=== PATIENT | female | born 1960 | race Caucasian/White ===

== ENCOUNTER 2016-09-04 13:09 | Inpatient (IN) | payer OTHER ==
[~2016-09-04] VITALS: Ht 149.9 cm; Wt 72.4 kg
[2016-09-04 15:07] LABS: ADD SCAN DIFF NO
[2016-09-04 15:11] LABS: BASOPHILS % 0.3 % (0.0-2.0); EOSINOPHILS # 0.3 10^3/ul (0.0-0.5); HEMATOCRIT 22.8 % (37.0-47.0); HEMOGLOBIN 7.3 g/dl (12.0-16.0); LYMPHOCYTES # 1.4 10^3/ul (0.8-2.9); LYMPHOCYTES % 13.5 % (15.0-51.0); MEAN CORPUSCULAR HEMOGLOBIN 27.8 pg (29.0-33.0); MEAN CORPUSCULAR VOLUME 86.7 fl (82.0-101.0); MEAN PLATELET VOLUME 9.4 fl (7.4-10.4); MONOCYTE # 0.6 10^3/ul (0.3-0.9); MONOCYTES % 5.6 % (0.0-11.0); NEUTROPHILS % 77.2 % (39.0-77.0); PLATELET COUNT 276 10^3/UL (140-415); RED BLOOD COUNT 2.63 10^6/ul (4.20-5.40); RED CELL DISTRIBUTION WIDTH 14.1 % (11.5-14.5); WHITE BLOOD COUNT 10.4 10^3/ul (4.8-10.8)
[2016-09-04 15:18] LABS: ADD UMIC YES; UR BILIRUBIN (Dip) NEGATIVE (NEGATIVE); UR BLOOD (Dip) TRACE (NEGATIVE); UR CLARITY CLEAR (CLEAR); UR COLOR LT. YELLOW (YELLOW); UR GLUCOSE (Dip) NEGATIVE (NEGATIVE); UR KETONES (Dip) NEGATIVE (NEGATIVE); UR LEUKOCYTE ESTERASE (Dip) NEGATIVE (NEGATIVE); UR NITRITE (Dip) NEGATIVE (NEGATIVE); UR TOTAL PROTEIN (Dip) 2+ (NEGATIVE); UR UROBILINOGEN (Dip) 0.2 E.U./dL (0.1-1.0)
[2016-09-04] MEDS ORDERED: LEVO137T3 PO (15:19)
[2016-09-04] MEDS ORDERED: SIMV20TA PO (15:20)
[2016-09-04] MEDS ORDERED: FER325 PO (15:20)
[2016-09-04] MEDS ORDERED: LISI20TA11 PO (15:20)
[2016-09-04 15:32] LABS: ALANINE AMINOTRANSFERASE 25 IU/L (13-69); ALBUMIN 4.7 g/dl (3.3-4.9); ALBUMIN/GLOBULIN RATIO 1.14; ALKALINE PHOSPHATASE 95 IU/L (42-121); ANION GAP 23 (8-16); ASPARTATE AMINO TRANSFERASE 20 IU/L (15-46); BLOOD UREA NITROGEN 88 mg/dl (7-20); CALCIUM 8.1 mg/dl (8.4-10.2); CARBON DIOXIDE 16 mmol/L (21-31); CHLORIDE 110 mmol/L (97-110); CREATININE 10.24 mg/dl (0.44-1.00); GLUCOSE 94 mg/dl (70-220); POTASSIUM 5.3 mmol/L (3.5-5.1); SODIUM 144 mmol/L (135-144); TOTAL PROTEIN 8.8 g/dl (6.1-8.1)
[2016-09-04 15:45] LABS: URINE RBCS 0-2 /HPF (0)
[2016-09-04 15:54] LABS: TROPONIN-I < 0.012 ng/ml (0.00-0.12)
--- NOTE | 2016-09-04 15:57 | RADRPT ---
PROCEDURE: XR Chest. CLINICAL INDICATION: Abdominal pain. TECHNIQUE: Single AP portable chest COMPARISON: None. FINDINGS: The cardiomediastinal silhouette is within normal limits of size . The lungs are clear without pleur al effusion or focal consolidation. No pneumothorax. The osseous structures and soft tissues are unr emarkable. IMPRESSION: 1. No evidence for active cardiopulmonary disease. RPTAT: HH Osorio Zimmerman Physician Date Time Electronically viewed and signed by Osorio Zimmerman Physician on 09/04/2016 15:57 KARSTEN/
[2016-09-04] MEDS ORDERED: FUROSEMIDE 40 MG INJ IV ONE (16:00)
[2016-09-04] MEDS ORDERED: NA POLYST SULFON 15 GM/60 ML BTL PO ONE (16:00)
[2016-09-04] MEDS ORDERED: ONDANSETRON 4 MG INJ IV PRN (17:00)
[2016-09-04] MEDS ORDERED: morphine 2 MG INJ IV PRN (17:00)
[2016-09-04] MEDS ORDERED: BISACODYL 10 MG SUPP PR PRN (17:00)
[2016-09-04] MEDS ORDERED: DOCUSATE SODIUM 100 MG CAP PO PRN (17:00)
[2016-09-04] MEDS ORDERED: LORAZEPAM 2 MG INJ IV PRN (17:00)
[2016-09-04] MEDS ORDERED: MAGNESIUM HYDROXIDE 30ML CUP PO PRN (17:00)
[2016-09-04] MEDS ORDERED: NACL 0.9% 3 ML SYG IV SCH (17:00)
[2016-09-04 17:35] LABS: HAAIG REFLEX REFLEX FILED
--- NOTE | 2016-09-04 17:36 | ERA ---
ER Documentation Chief Complaint Date/Time DATE: 09/04/16 TIME: 17:27 Chief Complaint sent by dr spaers for creatinine of 9.7. sent for admission and dialysis HPI 55-year-old woman referred by her manufacturing plant manager Dr. Spears for increasing creatinine level and worsening renal function. Patient has a long history of kidney disease and states she has been feeling weaker than usual. She has had increasing lower extremity swelling as well, she states she still makes urine. She denies fevers or chills, no chest pain or palpitations, no shortness of breath, no vomiting or diarrhea. ROS All systems reviewed and are negative except as per history of present illness. Medications Home Meds Reported Medications Lisinopril* (Lisinopril*) 20 Mg Tablet, 20 MG PO DAILY, #30 TAB 09/04/16 Simvastatin* (Zocor*) 20 Mg Tablet, 20 MG PO QHS, #30 TAB 09/04/16 Ferrous Sulfate* (Ferrous Sulfate*) 325 Mg Tabec, 325 MG PO DAILY, TAB 09/04/16 Levothyroxine Sodium* (Levothyroxine Sodium*) 137 Mcg Tablet, 137 MCG PO BEFORE BREAKFAST, #30 TAB 09/04/16 Allergies Allergies: Coded Allergies: Penicillins (Verified Allergy, Severe, 09/04/16) PMhx/Soc Hypertension, anemia, hypothyroidism, obesity, end-stage kidney disease not yet hemodialysis dependent Hx Alcohol Use: No Hx Substance Use: No Hx Tobacco Use: No Smoking Status: Unknown if ever smoked FmHx Family History: diabetes Physical Exam Vitals Vital Signs Date Time Temp Pulse Resp B/P Pulse Ox O2 Delivery O2 Flow Rate FiO2 09/04/16 16:42 82 22 154/81 100 Room Air 09/04/16 13:14 99.1 100 21 111/66 100 Physical Exam GENERAL: Well-developed, well-nourished, well-hydrated, in no apparent distress , looks nontoxic in appearance HEENT: Moist mucous membranes, pink conjunctiva, no cervical spine tenderness or step-off deformities, no goiter, no jaundice or icterus, extraocular movements intact without pain. No submandibular induration, and no pharyngeal erythema NEURO: Alert and oriented 3, cranial nerves II through XII intact bilaterally, pupils equal round reactive to light, no focal deficits or facial asymmetry, sensation intact distally Strength 5/5 in upper and lower extremities bilaterally CARDIAC: Regular rate and rhythm, no murmurs rubs or gallops LUNGS: Clear bilaterally no wheezing crackles or stridor ABDOMEN: Soft nontender, no guarding, no rigidity, no rebound, no psoas sign no obturator sign. Normoactive bowel sounds SKIN: Warm and dry to touch, no abrasions, contusions, or hematomas, no lacerations, no ecchymosis, no target lesions, and without ulcers EXTREMITIES: No clubbing cyanosis, 3+ pitting edema in the lower extremities bilaterally, calves are bilaterally symmetrical, no Homans sign, no popliteal cord sign. Distal pulses equal and bilateral PSYCH: Normal affect without agitation or irritability Result Diagram: 09/04/16 1448 09/04/16 1448 Results 24 hrs Laboratory Tests Test 09/04/16 14:48 White Blood Count 10.410^3/ul Red Blood Count 2.6310^6/ul Hemoglobin 7.3g/dl Hematocrit 22.8% Mean Corpuscular Volume 86.7fl Mean Corpuscular Hemoglobin 27.8pg Mean Corpuscular Hemoglobin Concent 32.0g/dl Red Cell Distribution Width 14.1% Platelet Count 64248^3/UL Mean Platelet Volume 9.4fl Neutrophils % 77.2% Lymphocytes % 13.5% Monocytes % 5.6% Eosinophils % 3.0% Basophils % 0.3% Nucleated Red Blood Cells % 0.0/100WBC Neutrophils # 8.010^3/ul Lymphocytes # 1.410^3/ul Monocytes # 0.610^3/ul Eosinophils # 0.310^3/ul Basophils # 0.010^3/ul Nucleated Red Blood Cells # 0.010^3/ul Urine Color LT. YELLOW Urine Clarity CLEAR Urine pH Urine Specific [place] Urine Ketones NEGATIVE Urine Nitrite NEGATIVE Urine Bilirubin NEGATIVE Urine Urobilinogen 0.2 E.U./dL Urine Leukocyte Esterase NEGATIVE Urine Microscopic RBC 0-2/HPF Urine Microscopic WBC NONE SEEN/HPF Urine Hemoglobin TRACE Urine Glucose NEGATIVE% Urine Total Protein 2+ Sodium Level 144mmol/L Potassium Level 5.3mmol/L Chloride Level 110mmol/L Carbon Dioxide Level 16mmol/L Anion Gap 23 Blood Urea Nitrogen 88mg/dl Creatinine 10.24mg/dl Glucose Level 94mg/dl Calcium Level 8.1mg/dl Total Bilirubin 0.0mg/dl Direct Bilirubin 0.00mg/dl Indirect Bilirubin 0.0mg/dl Aspartate Amino Transf (AST/SGOT) 20IU/L Alanine Aminotransferase (ALT/SGPT) 25IU/L Alkaline Phosphatase 95IU/L Troponin I < 0.012ng/ml Total Protein 8.8g/dl Albumin 4.7g/dl Globulin 4.10g/dl Albumin/Globulin Ratio 1.14 Lipase 618U/L Current Medications Medications (Trade) Dose Ordered Sig/Lou Route PRN Reason Start Time Stop Time Status Last Admin Dose Admin Furosemide (Lasix) 60 mg ONCE ONCE IV 09/04/16 16:00 09/04/16 16:02 DC 09/04/16 16:28 Sodium Polystyrene Sulfonate (Kayexalate) 30 gm ONCE ONCE PO 09/04/16 16:00 09/04/16 16:02 DC 09/04/16 16:34 Ferrous Sulfate (Ferrous Sulfate (Ec)) 325 mg DAILY PO 09/05/16 09:00 Levothyroxine Sodium (Synthroid) 137 mcg BEFORE BREAKFAST PO 09/05/16 07:00 Atorvastatin Calcium (Lipitor) 10 mg QHS PO 09/04/16 21:00 IV Flush (NS 3 ml) 3 ml PER PROTOCOL IV 09/04/16 17:00 Lorazepam (Ativan) 0.5 mg Q6H PRN IV ANXIETY 09/04/16 17:00 Ondansetron HCl (Zofran Inj) 4 mg Q6H PRN IV NAUSEA AND/OR VOMITING 09/04/16 17:00 Acetaminophen (Tylenol Tab) 650 mg Q6H PRN PO PAIN LEVEL 1-3 OR FEVER 09/04/16 17:00 Morphine Sulfate (morphine) 2 mg Q4H PRN IV PAIN LEVEL 7-10 09/04/16 17:00 Docusate Sodium (Colace) 100 mg Q12H PRN PO CONSTIPATION 09/04/16 17:00 Magnesium Hydroxide (Milk Of Mag) 30 ml DAILY PRN PO CONSTIPATION 09/04/16 17:00 Bisacodyl (Dulcolax Supp) 10 mg DAILY PRN [place] CONSTIPATION 09/04/16 17:00 Famotidine (Pepcid) 10 mg HS PO 09/04/16 21:00 Hydralazine HCl (Apresoline) 10 mg Q6H PRN IV ELEVATED BLOOD PRESSURE 09/04/16 17:30 Procedures/MDM IV line was established patient was placed on cardiac technician rhythm strip revealed a sinus rhythm at about 80 bpm with upright P and T waves. Patient was afebrile. One view chest x-ray performed, read by me there is normal mediastinum, no acute infiltrates, no end of the diaphragm. EKG performed, read by me revealed a normal sinus rhythm at 87 bpm, normal axis , narrow QRS complex with peak T waves, no concerning ST elevations or depressions noted. CBC revealed anemia with a hemoglobin of 7.3, electrolytes were abnormal with hyperkalemia 5.3 and renal failure and a creatinine of 10.2. Liver function tests are normal, troponin was negative. Lipase elevated at 618, urine analysis negative for infection. Immediate consultation was obtained with her manufacturing plant manager Dr. Reyes regarding the patient's presentation, symptomatology, and lab values. He recommended treatment with Kayexalate and Lasix 60 mg IV. I administered furosemide 60 mg IV and Kayexalate 30 g p.o. I also ordered transfusion of 2 units PRBCs IV for symptomatic anemia. Patient agreed to transfusion. Patient admitted to Dr. BAILEY to telemetry setting for continued medical management and possible hemodialysis Critical Care: Time: 35 minutes, this was time separate from other billable procedures. Treatments/Evaluations: Close monitoring and treatment of unstable vital signs, cardiorespiratory, and neurologic status, while maintaining tight balance of fluid, respiratory, and cardiac interventions. Departure Diagnosis: Primary Impression: End stage kidney disease Additional Impressions: Symptomatic anemia Hyperkalemia Peripheral edema Condition: LYDIA Carroll MD Sep 04, 2016 17:36
[2016-09-04 17:50] LABS: IRON 48 ug/dl (35-150)
--- NOTE | 2016-09-04 17:58 | HP ---
DATE OF ADMISSION: 09/04/2016 ADMITTING PHYSICIAN: Dr. Rasheed RESTRICTIVE PREPARATION OPERATOR ON THIS ADMISSION: Dr. George from Nephrology. CHIEF COMPLAINT ON ADMISSION: This is a 55-year-old female with a history of hypertension; hyperlip idemia; chronic anemia; chronic kidney disease, advanced stage, who was sent over to the emergency d [facility] after seeing outpatient Nephrology today. The patient was referred to Nephrology by her [facility] physician. She claims that her creatinine has been hanging around 9. Today when she wa s evaluated by Dr. Spears as an outpatient, she was sent to the emergency department for possible initi ation of dialysis. HISTORY OF PRESENT ILLNESS: The patient reports that for the past month she has been having increas ing generalized weakness, decreased exercise tolerance, episodes of nausea, episode of nosebleed and trace blood in her stools. She also reports easy bleeding and difficulty stopping once she starts bleeding. She denies any menorrhagia or metromenorrhagia. She was told she had chronic anemia and has been taking ferrous sulfate over the counter. The patient denies any chest pain. She denies an y neurological deficit, just generalized weakness. In the emergency department, she was found to nugent ve a hemoglobin of 7.3 and also advanced kidney disease, acute kidney injury with mild metabolic aci dosis, hyperkalemia, uremia with a BUN of 88, creatinine up to 10.24. Dr. George, who is covering for Dr. Spears's group at [facility], has been contacted. The patient is being admitted. She is being transfused 1 to 2 units of packed red blood cells. She did receive Lasix 60 mg IV x1 for the hyperkalemia along with Kayexalate. She is being admitted to telemetry floor. The patient td es any fevers, chills, recent sick contacts. She is of sound mind, able to give her history and com fortable at rest. ALLERGIES: PENICILLIN. PAST MEDICAL HISTORY: 1. Chronic anemia, likely of chronic kidney disease. 2. Hypertension. 3. Hyperlipidemia. 4. Chronic kidney disease, advanced stage, probably impending end-stage renal disease. PAST SURGICAL HISTORY: Status post x1 remotely. The patient otherwise has 4 vaginal deli veries. SOCIAL HISTORY: The patient lives with family. She does not drink alcohol, she does not smoke and no history of IV drug use. REVIEW OF SYSTEMS: As per HPI. OUTPATIENT MEDICATIONS: 1. Lisinopril 20 mg p.o. daily. 2. Ferrous sulfate 325 mg p.o. daily. 3. Zocor 20 mg p.o. at bedtime. 4. Levothyroxine 137 mcg daily. PHYSICAL EXAMINATION: VITAL SIGNS: Temperature is 99.1, heart rate of 82, respiratory rate of 22, blood pressure 154/81, patient is saturating 100% on room air. GENERAL: She is alert and oriented x4. She is not in acute distress currently. She feels more com fortable. HEENT: She does have pale sclerae. Otherwise, extraocular muscles are intact, anicteric sclerae. NECK: No JVD, no thyromegaly noted. LUNGS: Clear to auscultation bilaterally. No signs of volume overload even if patient complains of orthopnea at times. ABDOMEN: Soft, nontender, nondistended. Bowel sounds are present. EXTREMITIES: She does have +1 to +2 pedal edema, not much on the upper part of the lower extremity. NEUROLOGIC: Grossly intact with muscle strength of 4+/5 at least throughout. The patient just feel s generalized weakness. LABORATORY DATA: White blood cell count is 10.4, hemoglobin 7.3, hematocrit 22.8, platelet count of 276. Chemistry with a sodium of 144, potassium 5.3, chloride 110, bicarbonate 16, BUN 88, creatini ne 10.24, glucose of 94, calcium of 8.1. Troponin less than 0.012. Total protein 8.8, albumin of 4 .4, total bilirubin 0.1, AST 20, ALT 25, lipase of 618. RADIOLOGICAL DATA: Chest x-ray shows no acute evidence of active cardiopulmonary disease. ELECTROCARDIOGRAM: No acute ST or T-wave abnormalities. ASSESSMENT AND PLAN: This is a 55-year-old female with: 1. Advanced chronic kidney disease, now looks like nearing end-stage renal disease. The patient ma y need to initiate dialysis. Dr. George will be seeing the patient and further decision made at th at time. I am checking renal ultrasound. Discontinue lisinopril for now since the patient was hype rkalemic. We can use hydralazine as needed for hypertension. For now, the patient is not. 2. Hyperkalemia. Dr. George already addressed the issue by giving Lasix and Kayexalate. Will rep eat her labs in the morning. 3. Hypertension. Will change her antihypertensive to Norvasc and/or hydralazine p.r.n. 4. Anemia, likely acute on chronic. The patient will be getting 1 unit of packed red blood cells a t least. I have ordered iron panel, TSH, free T4, B12 and folate. The patient denies any dana ble eding. She just reports episodes where she has been having nosebleed and such, likely related to ur emia and platelet malfunction at that time. Will continue to monitor hemoglobin. Further workup as needed. 5. Hypothyroidism. Will check thyroid function testing and continue levothyroxine. 6. Hyperlipidemia. Check fasting lipid panel in a.m. Continue statin therapy. 7. Prophylaxis: Sequential compression devices to lower extremity for deep venous thrombosis proph ylaxis. Pepcid for gastrointestinal prophylaxis. DISPOSITION: The patient is admitted to telemetry, and Dr. George from Nephrology has been consult ed. Dictated By: LAINE PARK/KENNY Conf#: [id number] DID#: [id number]
[2016-09-04 18:00] LABS: TOTAL IRON BINDING CAPACITY 206 ug/dl (241-421)
[2016-09-04 18:17] LABS: THYROID STIMULATING HORMONE 0.735 MIU/L (0.465-4.680)
[2016-09-04 18:43] LABS: HEPATITIS B CORE ANTIBODY REACTIVE (NEGATIVE)
[2016-09-04 18:52] LABS: FOLATE 11.8 ng/ml (2.8-20.0)
--- NOTE | 2016-09-04 18:57 | RADRPT ---
PROCEDURE: Renal US. CLINICAL INDICATION: Renal failure. TECHNIQUE: Multiple sonographic images of the kidneys were obtained. The images were reviewed on a PACS workstation. COMPARISON: No prior studies are available for comparison. FINDINGS: The right kidney measures 11.2 cm. The left kidney measures 13.5 cm. Increased cortical echogenicity is identified in both kidneys. Thinning of the renal cortices is observed. Bilateral simple appeari ng renal cysts are identified. The largest on the right measures up to 5.5 cm. The largest on the left measures up to 5.8 cm. No solid masses, stones or hydronephrosis are identified. The bladder is filled with a moderate amount of urine and has an unremarkable appearance. IMPRESSION: Echogenic kidneys with thin renal cortices. Finding suggest medical renal disease. Bilateral simple appearing renal cysts. RPTAT: AA .De Cary MD, MD Date Time Electronically viewed and signed by .De Cary MD, MD on 09/04/2016 18:56 .P/
[2016-09-04] MEDS ORDERED: ATORVASTATIN 10 MG TAB PO SCH (21:00)
[2016-09-04] MEDS: hydrALAzine 20 MG INJ IV PRN ×2 (21:11→22:20)
[2016-09-04 22:04] VITALS: PULSE 90
[2016-09-04] MEDS: FAMOTIDINE 20 MG TAB PO SCH (22:19)
[2016-09-04] MEDS ORDERED: BENZOCAINE 20% 0.33 OZ. GEL MM PRN (23:30)
[2016-09-04 23:52] VITALS: BP 178/84; RESP 20
[2016-09-05] VITALS (11 sets, daily range): BP systolic 146–184; BP diastolic 76–87; PULSE 75–97; RESP 18–20; Ht 149.9 cm; Wt 72.4 kg
[2016-09-05] MEDS: ACETAMINOPHEN 325 MG TAB PO PRN (04:10)
[2016-09-05] MEDS: hydrALAzine 20 MG INJ IV PRN (04:33)
[2016-09-05] MEDS: LEVOTHYROXINE 137 MCG TAB PO SCH (06:11)
[2016-09-05 07:54] LABS: ADD SCAN DIFF NO
[2016-09-05 08:04] LABS: BASOPHILS % 0.3 % (0.0-2.0); EOSINOPHILS # 0.3 10^3/ul (0.0-0.5); EOSINOPHILS % 2.3 % (0.0-7.0); HEMATOCRIT 30.2 % (37.0-47.0); HEMOGLOBIN 9.9 g/dl (12.0-16.0); LYMPHOCYTES # 1.2 10^3/ul (0.8-2.9); LYMPHOCYTES % 9.5 % (15.0-51.0); MEAN CORPUSCULAR HEMOGLOBIN 27.8 pg (29.0-33.0); MEAN CORPUSCULAR HGB CONC 32.8 g/dl (32.0-37.0); MEAN CORPUSCULAR VOLUME 84.8 fl (82.0-101.0); MEAN PLATELET VOLUME 10.1 fl (7.4-10.4); MONOCYTE # 0.7 10^3/ul (0.3-0.9); MONOCYTES % 5.3 % (0.0-11.0); NEUTROPHILS % 82.2 % (39.0-77.0); PLATELET COUNT 270 10^3/UL (140-415); RED BLOOD COUNT 3.56 10^6/ul (4.20-5.40); RED CELL DISTRIBUTION WIDTH 14.3 % (11.5-14.5); WHITE BLOOD COUNT 12.2 10^3/ul (4.8-10.8)
[2016-09-05] MEDS: FERROUS SULFATE (EC) 325 MG TAB PO SCH (08:34)
[2016-09-05 08:38] LABS: ALBUMIN 4.6 g/dl (3.3-4.9); ALBUMIN/GLOBULIN RATIO 1.31; BILIRUBIN,INDIRECT 0.5 mg/dl (0-1.1); BILIRUBIN,TOTAL 0.5 mg/dl (0.2-1.3); CALCIUM 7.5 mg/dl (8.4-10.2); CHOL/HDL RATIO 7.5 RATIO; CREATININE 9.78 mg/dl (0.44-1.00); MAGNESIUM 1.8 mg/dl (1.7-2.5); POTASSIUM 4.6 mmol/L (3.5-5.1); TOTAL PROTEIN 8.1 g/dl (6.1-8.1)
[2016-09-05 10:02] LABS: IRON 80 ug/dl (35-150)
[2016-09-05 10:12] LABS: TOTAL IRON BINDING CAPACITY 204 ug/dl (241-421)
[2016-09-05] MEDS: BENAZEPRIL 10 MG TAB PO SCH (10:25)
[2016-09-05] MEDS: ATENOLOL 50 MG TAB GTB SCH ×2 (10:25→20:43)
--- NOTE | 2016-09-05 10:30 | CONS ---
DATE OF ADMISSION: 09/04/2016 DATE OF CONSULTATION: Dear Dr. Rasheed: Thank you for asking me to participate in the care of this 55- year-old para 5, 5 Latin female, who is a somewhat poor historian. Information is limited and is available and also in your excellent history. In summary, the patient has a known history of hypertension for at least 4 years , that she recalls, and has been followed by her primary doctor. She has been maintained on multiple medications including lisinopril, ferrous sulfate, Zocor and levothyroxine. She was recently found to have an elevated creatinine and was seen by in the office and transferred to the hospital for further evaluation and treatment. The workup in the hospital thus far has revealed electrolytes, CO2 is 15, chloride 110, sodium 143. Potassium was elevated, though improved to 4.6 at the time of this dictation. The calcium is low at 7.5, magnesium 1.8. Hemoglobin A1c is 5.6. The BUN and creatinine are 88 and 9.78, respectively. Additional studies include a thyroid hormone of 1.41. TSH is 0.735. The patient has cholesterol studies which suggest hyperlipidemia and white count has risen from 10 to 12.2 and the hematocrit is in the 30% range. The patient has been feeling weak with some nausea. There has been some limited ability to do her daily activities, although has not had any bleeding from any source. The patient has not been exposed to any nephrotoxic agents and has not noticed any decreased urinary volume. PAST MEDICAL HISTORY: Negative for any medical or surgical illness. The patient denies having had any problems with any of her pregnancies. PERSONAL HISTORY: The patient lives with her family and apparently is single. SOCIAL HISTORY: She does not smoke, drink. ALLERGIES: HAS NO KNOWN ALLERGIES. She is not using any other entertainment medications. REVIEW OF SYSTEMS: The rest of the system review is negative for any head, ears , nose, throat problems, chest pain, shortness of breath. No abdominal pain, flank pain, dysuria, frequency, urgency. No history of seizures, syncope, or other metabolic problems. The patient had a urinalysis that showed 2+ protein and the rest is all negative. She does complain of right foot pain, mostly pointing to the anterior aspect of the foot. There is no episode of swelling of any joints and she denies having gout. There is no history of any other acute metabolic problem. The patient denies any problems as a child such as nephritis. FAMILY HISTORY: Noncontributory. PHYSICAL EXAMINATION: GENERAL: Reveals the patient to be a pleasant Latin female, who is in no acute distress. VITAL SIGNS: Blood pressure has been as high as 184/87, presently is improving. Heart rate is 79, temperature is 97, respirations 18 to 20. HEENT: Exam is the head, ears, nose throat are unremarkable. Conjunctivae are pale. Sclerae are anicteric. Nose normal mucosa. Tongue is pale. No pharyngeal congestion. NECK: Supple. No jugular venous distention, lymph node or thyroid enlargement. Trachea is midline. CHEST: Symmetrical. BREASTS: Not examined. LUNGS: Clear. HEART: Regular rhythm. S1, S2 unremarkable. ABDOMEN: Flat, soft. No masses. Kidneys are not palpable. No CVA tenderness elicited. No bruit over the mid abdomen. GENITALIA: Not examined. EXTREMITIES: No cyanosis, clubbing or edema. SKIN: Pale. NEUROLOGIC: No neurological deficits noted. IMPRESSION: 1. History of hypertension, longstanding. 2. Probably ongoing chronic kidney disease, presently stage 5. 3. Anemia. 4. Pain in right foot. Rule out gout. This patient may have end-stage renal status with ongoing insufficiency, most likely related to nephrosclerosis. The creatinine is so high the etiology may be a moot point at this time and obviously is not worth pursuing, although I will take the liberty to request some studies to rule out the possibility of collagen vascular diseases, such as antinuclear antibody titer. I would follow the patient's clinical course along with you and hope that we can proceed with dialysis which is inevitable and for which she is a candidate. The various options Hemo vs Peritoneal is a worthwhile discussion and will be further pursued once the pt is stable. We will need to make arrangements for outpatient dialysis eventually, for which a hepatitis screen has been done and is negative. I will be following the patient's clinical course closely. Allow me to thank you once again. Sincerely, Dictated By: JACOBO CLAYTON/KENNY Conf#: [id number] DID#: [id number] PHUONG
[2016-09-05] MEDS: CALCIUM ACETATE 667 MG CAP NGT SCH ×2 (11:48→17:20)
[2016-09-05 11:50] LABS: PHOSPHORUS 7.7 mg/dl (2.5-4.9)
[2016-09-05 12:21] LABS: COMPLEMENT C3 118 mg/dl (88-165); COMPLEMENT C4 44 mg/dl (14-44)
--- NOTE | 2016-09-05 13:51 | PN ---
Date/Time of Note Date/Time of Note DATE: 09/05/16 TIME: 13:39 Assessment/Plan VTE Prophylaxis VTE Prophylaxis Intervention: SCD's Lines/Catheters [facility] Saline Lock Urinary Cath still in place: No Assessment/Plan Assessment/Plan 55-year-old female with: 1. Advanced chronic kidney disease, now looks like nearing end-stage renal disease. Per Nephrology, PermCAth placement and initiation of HD Dr Spears rounded on patient today s/p pRBC 2. Hyperkalemia. S/p Lasix and Kayexalate yesterday, resolved 3. Hypertension. Continue Atenolol and hydralazine p.r.n. 4. Anemia, likely acute on chronic. Hb up to 9.9 S/p pRBC last night Iron panel, TSH, free T4, B12 and folate done Patient denies any dana bleeding. She just reports episodes where she has been having nosebleed and such, likely related to uremia and platelet malfunction at that time. 5. Hypothyroidism. TFTs stable, continue current dose of levothyroxine. 6. Hyperlipidemia. Continue statin therapy. 7. Gout?, uric acid up to 10.4, will start allopurinol Prophylaxis: Sequential compression devices to lower extremity for deep venous thrombosis prophylaxis. Pepcid for gastrointestinal prophylaxis. DISPOSITION: Telemetry, PermCath placement, initiation of HD per Nephrology. Subjective 24 Hr Interval Summary Free Text/Dictation Patient remains stable, post pRBC overnight Per Tory this AM, will require initiation of HD and PermCath placement pending Exam/Review of Systems Vital Signs Vitals Vital Signs Date Time Temp Pulse Resp B/P Pulse Ox O2 Delivery O2 Flow Rate FiO2 09/05/16 12:30 77 09/05/16 11:12 98.2 19 168/81 98 09/04/16 21:00 Room Air Intake and Output 09/04/16 09/04/16 09/05/16 15:00 23:00 07:00 Intake Total 800 ml Balance 800 ml Exam Constitutional: alert, oriented, well developed Respiratory: clear to auscultation, normal air movement Cardiovascular: nl pulses, regular rate and rhythm Gastrointestinal: non-tender, soft Musculoskeletal: nl extremities to inspection, swelling (left forefoot with TTP metatarsal joints ) Extremities: normal pulses, other (no edema, clubbing or cyanosis ) Neurological: TEST DESK OPERATOR II-XII intact, nl mental status, nl speech, nl strength Results Result Diagram: 09/05/16 0641 09/05/16 0641 Results 24 hrs Laboratory Tests Test 09/04/16 14:48 09/05/16 06:20 09/05/16 06:41 09/05/16 06:42 White Blood Count 10.4 12.2 H Red Blood Count 2.63 L 3.56 #L Hemoglobin 7.3 L 9.9 #L Hematocrit 22.8 L 30.2 #L Mean Corpuscular Volume 86.7 84.8 Mean Corpuscular Hemoglobin 27.8 L 27.8 L Mean Corpuscular Hemoglobin Concent 32.0 32.8 Red Cell Distribution Width 14.1 14.3 Platelet Count 276 270 Mean Platelet Volume 9.4 10.1 Neutrophils % 77.2 H 82.2 H Lymphocytes % 13.5 L 9.5 L Monocytes % 5.6 5.3 Eosinophils % 3.0 2.3 Basophils % 0.3 0.3 Nucleated Red Blood Cells % 0.0 0.0 Neutrophils # 8.0 H 10.0 H Lymphocytes # 1.4 1.2 Monocytes # 0.6 0.7 Eosinophils # 0.3 0.3 Basophils # 0.0 0.0 Nucleated Red Blood Cells # 0.0 0.0 Urine Color LT. YELLOW Urine Clarity CLEAR Urine pH Urine Specific [place] Urine Ketones NEGATIVE Urine Nitrite NEGATIVE Urine Bilirubin NEGATIVE Urine Urobilinogen 0.2 E.U./dL Urine Leukocyte Esterase NEGATIVE Urine Microscopic RBC 0-2 Urine Microscopic WBC NONE SEEN Urine Hemoglobin TRACE Urine Glucose NEGATIVE Urine Total Protein 2+ H Sodium Level 144 143 Potassium Level 5.3 H 4.6 Chloride Level 110 110 Carbon Dioxide Level 16 L 15 L Anion Gap 23 H 23 H Blood Urea Nitrogen 88 H 88 H Creatinine 10.24 H 9.78 H Glucose Level 94 93 Calcium Level 8.1 L 7.5 L Iron Level 48 80 # Total Iron Binding Capacity 206 L 204 L Percent Iron Saturation 23 39 Ferritin 178.0 Total Bilirubin 0.0 L 0.5 Direct Bilirubin 0.00 0.00 Indirect Bilirubin 0.0 0.5 Aspartate Amino Transf (AST/SGOT) 20 19 Alanine Aminotransferase (ALT/SGPT) 25 22 Alkaline Phosphatase 95 97 Troponin I < 0.012 Total Protein 8.8 H 8.1 Albumin 4.7 4.6 Globulin 4.10 H 3.50 H Albumin/Globulin Ratio 1.14 1.31 Lipase 618 H Vitamin B12 Level 478 Folate 11.8 Thyroid Stimulating Hormone (TSH) 0.735 Free Thyroxine 1.41 Hepatitis B Surface Antigen NEGATIVE Hepatitis B Core Total Antibody REACTIVE H Hepatitis C Antibody NEGATIVE Urine Random Creatinine 40.01 Urine Random Sodium 104 H Hemoglobin A1c 5.6 Uric Acid 10.4 H Magnesium Level 1.8 Triglycerides Level 223 H Cholesterol Level 144 LDL Cholesterol, Calculated 80 HDL Cholesterol 19 L Cholesterol/HDL Ratio 7.5 Lab Scanned Report BLOOD TRANSFUSION Test 09/05/16 11:10 Phosphorus Level 7.7 H Parathyroid Hormone (Intact) Complement C3 118 Complement C4 44 Hepatitis B Surface Antigen NEGATIVE Hepatitis B Surface Antibody POSITIVE H Hepatitis C Antibody NEGATIVE Medications Medications Current Medications Ferrous Sulfate (Ferrous Sulfate (Ec)) 325 mg DAILY PO Last administered on 08:34; Admin Dose 325 MG; Start 09/05/16 at 09:00 Lorazepam (Ativan) 0.5 mg Q6H PRN IV ANXIETY; Start 09/04/16 at 17:00 Ondansetron HCl (Zofran Inj) 4 mg Q6H PRN IV NAUSEA AND/OR VOMITING; Start at 17:00 Acetaminophen (Tylenol Tab) 650 mg Q6H PRN PO PAIN LEVEL 1-3 OR FEVER Last administered on 09/05/16 04:10; Admin Dose 650 MG; Start 09/04/16 at 17:00 Morphine Sulfate (morphine) 2 mg Q4H PRN IV PAIN LEVEL 7-10; Start 09/04/16 at 17:00 Docusate Sodium (Colace) 100 mg Q12H PRN PO CONSTIPATION; Start 09/04/16 at 17: 00 Magnesium Hydroxide (Milk Of Mag) 30 ml DAILY PRN PO CONSTIPATION; Start at 17:00 Bisacodyl (Dulcolax Supp) 10 mg DAILY PRN [place] CONSTIPATION; Start 09/04/16 at 17 :00 Famotidine (Pepcid) 10 mg HS PO Last administered on 09/04/16 22:19; Admin Dose 10 MG; Start 09/04/16 at 21:00 Hydralazine HCl (Apresoline) 10 mg Q6H PRN IV ELEVATED BLOOD PRESSURE Last administered on 09/05/16 04:33; Admin Dose 10 MG; Start 09/04/16 at 17:30 Benzocaine (Orajel Maximum) 1 applic Q4H PRN MM mouth/gum pain; Start 09/04/16 at 23:30 Benazepril HCl (Lotensin) 10 mg DAILY PO Last administered on 09/05/16 10:25; Admin Dose 10 MG; Start 09/05/16 at 09:30 Atenolol (Tenormin) 50 mg BID GTB Last administered on 09/05/16 10:25; Admin Dose 50 MG; Start 09/05/16 at 09:30 Atorvastatin Calcium (Lipitor) 20 mg QHS PO ; Start 09/05/16 at 21:00 LAINE BAILEY Sep 05, 2016 13:50
[2016-09-05 14:37] LABS: INR 1.02; PROTIME 13.4 Sec (12.2-14.2)
[2016-09-05 14:38] LABS: PARTIAL THROMBOPLASTIN TIME 26.7 Sec (25.0-35.0)
[2016-09-05] MEDS: ALLOPURINOL 100 MG TAB PO SCH (14:54)
--- NOTE | 2016-09-05 15:52 | RADRPT ---
Echocardiogram Report Patient Name: BLAZE DAHL Gender: Female Date: 1960 Study Date: 05-Sep-2016 Seismic Engineer: Guillermo Kumar RDCS Location: [facility] Ref. Physician: PONCHO BAILEY Quality: Good Procedures: Transthoracic echocardiogram with complete 2D, M-Mode, and doppler examination. Indications: Evaluate Left Ventricular function. 2D/M Mode Doppler Measurement Value Normal Ranges Measurement Value Normal Ranges LVIDd 2D 5.1 3.5 - 5.6 cm AV Peak Norris 1.9 m/sec LVIDs 2D 2.9 2.1 - 4.1 cm AV Peak PG 15.0 mmHg FS 2D 43.2 % LVOT Peak Norris 1.3 m/sec LVPWd 2D 1.1 0.6 - 1.1 cm LVOT Peak PG 7.0 mmHg IVSd 2D 1.1 0.6 - 1.1 cm MV E Peak Norris 0.8 m/sec IVS/LVPW 2D 1.0 MV A Peak Norris 1.0 m/sec AoR Diam 2D 2.7 2.0 - 3.7 cm MV E/A 0.8 LA/Ao 2D 1 0 - 1 MV Decel Time 190 msec EDV 2D 136.0 cm3 MV E/A 0.8 ESV 2D 24.9 cm3 TR Peak Norris 2.9 m/sec LA Dimen 2D 3.4 2.3 - 4.0 cm TR Peak PG 33.0 mmHg RVSP 36.0 mmHg Findings Left Ventricle: Normal left ventricular systolic function. Normal left ventricular cavity size. Mild concentric left ventricular hypertrophy. Ejection fraction is visually estimated at 65 %. Tissue Doppler/Mitral Doppler indices are consistent with impaired relaxation (Stage I diastolic dysfunction). Right Ventricle: Normal right ventricular size. Normal right ventricular systolic function. Left Atrium: The left atrium is normal in size. Right Atrium: The right atrium is normal in size. Mitral Valve: Normal appearance of the mitral valve. Mild mitral annular calcification. Trace mitral regurgitation. Aortic Valve: Aortic sclerosis without stenosis. No aortic regurgitation. Tricuspid Valve: Normal appearance of the tricuspid valve. Estimated peak PA systolic pressure 36 mmHg. There is mild tricuspid regurgitation. Pulmonic Valve: Normal pulmonic valve appearance. Pericardium: Normal pericardium with no significant pericardial effusion. Aorta: Normal aortic root. IVC: Normal size and normal respiratory collapse consistent with normal right atrial pressure. Conclusions 1.Normal left ventricular systolic function. Normal left ventricular cavity size. Mild concentric left ventricular hypertrophy. Ejection fraction is visually estimated at 65 %. Tissue Doppler/Mitral Doppler indices are consistent with impaired relaxation (Stage I diastolic dysfunction). 2.Normal appearance of the mitral valve. Mild mitral annular calcification. Trace mitral regurgitation. 3.Aortic sclerosis without stenosis. No aortic regurgitation. 4.Normal appearance of the tricuspid valve. Estimated peak PA systolic pressure 36 mmHg. There is mild tricuspid regurgitation. 5.Normal pulmonic valve appearance. 6.Normal pericardium with no significant pericardial effusion. Electronically Signed By: Abraham Williamson 05-Sep-2016 15:52:32 -0700 Patient Name: BLAZE DAHL Study Date: 05-Sep-2016 [id number]
[2016-09-05] MEDS ORDERED: LORAZEPAM 0.5 MG TAB PO PRN (18:00)
[2016-09-05] MEDS: FAMOTIDINE 20 MG TAB PO SCH (20:43)
[2016-09-05] MEDS: ATORVASTATIN 20 MG TAB PO SCH (20:43)
[2016-09-06] VITALS (19 sets, daily range): BP systolic 126–181; BP diastolic 70–86; PULSE 58–72; RESP 18
[2016-09-06 06:03] LABS: ADD SCAN DIFF NO
[2016-09-06 06:10] LABS: BASOPHILS % 0.3 % (0.0-2.0); EOSINOPHILS # 0.3 10^3/ul (0.0-0.5); EOSINOPHILS % 3.3 % (0.0-7.0); HEMATOCRIT 29.5 % (37.0-47.0); HEMOGLOBIN 9.6 g/dl (12.0-16.0); LYMPHOCYTES # 1.5 10^3/ul (0.8-2.9); LYMPHOCYTES % 15.5 % (15.0-51.0); MEAN CORPUSCULAR HEMOGLOBIN 27.8 pg (29.0-33.0); MEAN CORPUSCULAR HGB CONC 32.5 g/dl (32.0-37.0); MEAN CORPUSCULAR VOLUME 85.5 fl (82.0-101.0); MONOCYTE # 0.6 10^3/ul (0.3-0.9); MONOCYTES % 6.1 % (0.0-11.0); NEUTROPHIL # 7.3 10^3/ul (1.6-7.5); NEUTROPHILS % 74.4 % (39.0-77.0); PLATELET COUNT 270 10^3/UL (140-415); RED BLOOD COUNT 3.45 10^6/ul (4.20-5.40); RED CELL DISTRIBUTION WIDTH 14.3 % (11.5-14.5); WHITE BLOOD COUNT 9.8 10^3/ul (4.8-10.8)
[2016-09-06 06:32] LABS: INR 1.09; PARTIAL THROMBOPLASTIN TIME 28.4 Sec (25.0-35.0); PROTIME 14.1 Sec (12.2-14.2); PT RATIO 1.1
[2016-09-06] MEDS: LEVOTHYROXINE 137 MCG TAB PO SCH (06:35)
[2016-09-06 06:57] LABS: MAGNESIUM 1.9 mg/dl (1.7-2.5); PHOSPHORUS 8.7 mg/dl (2.5-4.9)
[2016-09-06 07:04] LABS: CALCIUM 7.9 mg/dl (8.4-10.2); CREATININE 9.85 mg/dl (0.44-1.00); POTASSIUM 4.7 mmol/L (3.5-5.1)
[2016-09-06] MEDS ORDERED: IODIXANOL LOCM 100 ML BTL ONE (08:27)
[2016-09-06] MEDS ORDERED: FENTAnyl 50 MCG/ML VIAL ONE (08:27)
[2016-09-06] MEDS ORDERED: LIDOCAINE 1% (MDV) 20 ML INJ ONE (08:27)
[2016-09-06] MEDS ORDERED: IODIXANOL LOCM 50 ML BTL ONE (08:27)
[2016-09-06] MEDS ORDERED: MIDAZOLAM 1 MG/ML 2 ML INJ ONE (08:28)
[2016-09-06] MEDS ORDERED: HEPARIN 1000 UNITS/ML 10 ML INJ ONE (08:51)
[2016-09-06] MEDS ORDERED: HEPARIN 1000 UNITS/NS (A-LINE) 1,000 ML ONE (08:52)
[2016-09-06] MEDS: ALLOPURINOL 100 MG TAB PO SCH (10:00)
[2016-09-06] MEDS: CALCIUM ACETATE 667 MG CAP NGT SCH ×3 (10:03→18:17)
[2016-09-06] MEDS: FERROUS SULFATE (EC) 325 MG TAB PO SCH (10:04)
[2016-09-06] MEDS: BENAZEPRIL 10 MG TAB PO SCH (10:06)
[2016-09-06] MEDS: ATENOLOL 50 MG TAB GTB SCH ×2 (10:06→20:23)
--- NOTE | 2016-09-06 11:30 | PN ---
Date/Time of Note Date/Time of Note DATE: 09/06/16 TIME: 11:21 Assessment/Plan VTE Prophylaxis VTE Prophylaxis Intervention: SCD's Lines/Catheters IV [facility]from [facility] Saline Lock Urinary Cath still in place: No Assessment/Plan Assessment/Plan 55-year-old female with: 1. Advanced chronic kidney disease, now looks like nearing end-stage renal disease. S/p Perm Cath placement today and plan for HD today per Nephrology and needs outpatient HD set up Hep panel with Hep B positive otherwise negative and CXR clear 2. Hyperkalemia. S/p Lasix and Kayexalate yesterday, resolved 3. Hypertension. Continue Atenolol and hydralazine p.r.n. 4. Anemia, likely acute on chronic 2ry to ESRD. Hb up to 9.9 and stable S/p pRBC on admission. Iron panel, TSH, free T4, B12 and folate done Patient denies any dana bleeding. She just reports episodes where she has been having nosebleed and such, likely related to uremia and platelet malfunction at that time. 5. Hypothyroidism. TFTs stable, continue current dose of levothyroxine. 6. Hyperlipidemia. Continue statin therapy. 7. Gout?, uric acid up to 10.4, now on Allopurinol and no left foot pain today. Prophylaxis: Sequential compression devices to lower extremity for deep venous thrombosis prophylaxis. Pepcid for gastrointestinal prophylaxis. DISPOSITION: Telemetry, s/p PermCath placement this AM, initiation of HD per Nephrology. Subjective 24 Hr Interval Summary Free Text/Dictation Patient doing well today and no further complaints of left foot pain or swelling PermCath placed this am and to start HD today. Exam/Review of Systems Vital Signs Vitals Vital Signs Date Time Temp Pulse Resp B/P Pulse Ox O2 Delivery O2 Flow Rate FiO2 09/06/16 08:13 58 09/06/16 07:10 98.5 18 153/80 97 09/04/16 21:00 Room Air Intake and Output 09/05/16 09/05/16 09/06/16 15:00 23:00 07:00 Intake Total 500 ml 600 ml Balance 500 ml 600 ml Exam Constitutional: alert, oriented, well developed Respiratory: clear to auscultation, normal air movement, other (Right subclavian permcath placed) Cardiovascular: nl pulses, regular rate and rhythm Gastrointestinal: non-tender, soft Musculoskeletal: nl extremities to inspection Extremities: normal pulses, other (no edema, clubbing or cyanosis ) Neurological: CREDIT COLLECTIONS ANALYST II-XII intact, nl mental status, nl speech, nl strength Results Result Diagram: 09/06/16 0525 09/06/16 0520 Results 24 hrs Laboratory Tests Test 09/05/16 14:00 09/06/16 05:20 09/06/16 05:25 09/06/16 05:26 Prothrombin Time 13.4 14.1 Prothrombin Time Ratio 1.0 1.1 INR International Normalized Ratio 1.02 1.09 Activated Partial Thromboplast Time 26.7 28.4 Sodium Level 141 Potassium Level 4.7 Chloride Level 108 Carbon Dioxide Level 16 L Anion Gap 22 H Blood Urea Nitrogen 99 H Creatinine 9.85 H Glucose Level 89 Calcium Level 7.9 L White Blood Count 9.8 Red Blood Count 3.45 L Hemoglobin 9.6 L Hematocrit 29.5 L Mean Corpuscular Volume 85.5 Mean Corpuscular Hemoglobin 27.8 L Mean Corpuscular Hemoglobin Concent 32.5 Red Cell Distribution Width 14.3 Platelet Count 270 Mean Platelet Volume 10.0 Neutrophils % 74.4 Lymphocytes % 15.5 Monocytes % 6.1 Eosinophils % 3.3 Basophils % 0.3 Nucleated Red Blood Cells % 0.0 Neutrophils # 7.3 Lymphocytes # 1.5 Monocytes # 0.6 Eosinophils # 0.3 Basophils # 0.0 Nucleated Red Blood Cells # 0.0 Phosphorus Level 8.7 H Magnesium Level 1.9 Medications Medications Current Medications Ferrous Sulfate (Ferrous Sulfate (Ec)) 325 mg DAILY PO Last administered on 10:04; Admin Dose 325 MG; Start 09/05/16 at 09:00 Ondansetron HCl (Zofran Inj) 4 mg Q6H PRN IV NAUSEA AND/OR VOMITING; Start at 17:00 Acetaminophen (Tylenol Tab) 650 mg Q6H PRN PO PAIN LEVEL 1-3 OR FEVER Last administered on 09/05/16 04:10; Admin Dose 650 MG; Start 09/04/16 at 17:00 Morphine Sulfate (morphine) 2 mg Q4H PRN IV PAIN LEVEL 7-10; Start 09/04/16 at 17:00 Docusate Sodium (Colace) 100 mg Q12H PRN PO CONSTIPATION; Start 09/04/16 at 17: 00 Magnesium Hydroxide (Milk Of Mag) 30 ml DAILY PRN PO CONSTIPATION; Start at 17:00 Bisacodyl (Dulcolax Supp) 10 mg DAILY PRN [place] CONSTIPATION; Start 09/04/16 at 17 :00 Famotidine (Pepcid) 10 mg HS PO Last administered on 09/05/16 20:43; Admin Dose 10 MG; Start 09/04/16 at 21:00 Hydralazine HCl (Apresoline) 10 mg Q6H PRN IV ELEVATED BLOOD PRESSURE Last administered on 09/05/16 04:33; Admin Dose 10 MG; Start 09/04/16 at 17:30 Benzocaine (Orajel Maximum) 1 applic Q4H PRN MM mouth/gum pain; Start 09/04/16 at 23:30 Benazepril HCl (Lotensin) 10 mg DAILY PO Last administered on 09/06/16 10:06; Admin Dose 10 MG; Start 09/05/16 at 09:30 Atenolol (Tenormin) 50 mg BID GTB Last administered on 09/06/16 10:06; Admin Dose 50 MG; Start 09/05/16 at 09:30 Atorvastatin Calcium (Lipitor) 20 mg QHS PO Last administered on 09/05/16 20: 43; Admin Dose 20 MG; Start 09/05/16 at 21:00 Allopurinol (Zyloprim) 100 mg DAILY PO Last administered on 09/06/16 10:00; Admin Dose 100 MG; Start 09/05/16 at 14:00 Lorazepam (Ativan) 0.5 mg Q6H PRN PO ANXIETY; Start 09/05/16 at 18:00 Procedures Procedures PROCEDURE: XR Chest. CLINICAL INDICATION: Abdominal pain. TECHNIQUE: Single AP portable chest COMPARISON: None. FINDINGS: The cardiomediastinal silhouette is within normal limits of size . The lungs are clear without pleural effusion or focal consolidation. No pneumothorax. The osseous structures and soft tissues are unremarkable. IMPRESSION: 1. No evidence for active cardiopulmonary disease. RPTAT: Osorio Zimmerman Physician Date Time Electronically viewed and signed by Osorio Zimmerman Physician on 09/04/2016 15:57 LAINE BAILEY Sep 06, 2016 11:30
[2016-09-06] MEDS ORDERED: HEPARIN 1000 UNITS/ML 10 ML INJ CATHETER ONE (14:30)
--- NOTE | 2016-09-06 15:04 | RADRPT ---
PROCEDURE: PLACEMENT OF RIGHT INTERNAL JUGULAR VENOUS TUNNELED DIALYSIS CATHETER. CLINICAL INDICATION: Renal failure. TECHNIQUE: Prior to the procedure, informed consent was obtained. Risks including bleeding, infection, and pneu mothorax were explained to the patient and/or the patient's family. The patient and/or the patient's family understood and was willing to proceed. A procedural pause was performed. The patient's name, date of , and procedure to be performed were verified. The central line was inserted with all elements of maximal sterile barrier technique. All of the following were used: head covering, facial mask, sterile gown, sterile gloves, a large sterile sheet, hand hygiene, and 2% chlorhexidine for cutaneous antisepsis. The right neck and anterior/superior chest wall was prepped and draped in usu al sterile fashion. Limited sonography of the right neck was then performed. Noted is a patent right internal jugular ve in. Ultrasound images were recorded and stored in the patient's medical record. Following the local injection of Xylocaine, the right internal jugular vein was punctured under sono graphic guidance with a 20-gauge needle through which a 0.018 inch floppy tip guidewire was advanced into the superior vena cava. The tract was dilated to 5 Macedonian and the wire was then replaced with a 0.035 in Amplatz guidewire. A tunnel was then created from the anterior lateral aspect of the sup erior right chest wall to the puncture site in the neck and the catheter was pulled through the trac t. Serial dilatation was then performed and a 16 Macedonian peel away sheath was introduced. The 14.5 Macedonian 23cm tip to cuff Angiodynamics BioFlo DuraMax dialysis catheter was advanced through the 16 F rench peel-away sheath. The tip of the catheter was confirmed in position within the right atrium. T he peel-away sheath was removed. The 2 ports were each flushed with 2.3 ml of 1:1000 heparin. The c atheter was secured to the skin with 2-0 silk. The wound in the neck was closed with 4-0 Vicryl suture using subcuticular running technique. The site was dressed. The patient tolerated the proce dure well. COMPARISON: None. FINDINGS: Final radiographic images demonstrate the tip of the catheter in the upper right atrium. A total of 0.2 minutes of fluoroscopy time was used. The ultrasound images demonstrate the needle entering th e jugular vein. Ultrasound images were recorded and stored in the patient's medical record. 5 image s of the chest were obtained with image intensifier. IMPRESSION: 1. Percutaneous insertion of right internal jugular dialysis tunneled dialysis catheter under fluoro scopic and sonographic guidance. RPTAT: QQ .Jay Guevara MD, MD Date Time Electronically viewed and signed by .Jay Guevara MD, MD on 09/06/2016 15:04 .R/
--- NOTE | 2016-09-06 16:01 | CONS ---
Date/Time of Note Date/Time of Note DATE: 09/06/16 TIME: 15:59 Assessment/Plan Assessment/Plan Additional Assessment/Plan 55 yo Female with 1)Stage V CKD, Severe, S/p PC now HD #1 2) HTN Chronic 3) Anemia, Severe S/p PRBC improved 4) MBD, CKD. 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 [id number] Consultation Date/Type/Reason Admit Date/Time Sep 04, 2016 at 16:40 Initial Consult Date Type of Consultation: Renal Reason for Consultation ESRD 24 HR Interval Summary Free Text/Dictation Seen and examined on HD, No new complaint, S/p PC HD #1 Constitutional: No requiring O2 Exam/Review of Systems Vital Signs Vitals Vital Signs Date Time Temp Pulse Resp B/P Pulse Ox O2 Delivery O2 Flow Rate FiO2 09/06/16 15:10 98.1 58 18 128/78 98 09/04/16 21:00 Room Air Intake and Output 09/05/16 09/05/16 09/06/16 15:00 23:00 07:00 Intake Total 500 ml 600 ml Balance 500 ml 600 ml Exam Constitutional: alert, oriented, No distress ENMT: mucosa pink and moist Neck: No jvd Respiratory: No crackles/rales Cardiovascular: edema, regular rate and rhythm Gastrointestinal: non-tender, soft, No rebound or guarding Extremities: edema Neurological: LAUNDRY PRESS OPERATOR II-XII intact, nl mental status, No lethargic Skin: nl turgor, No diaphoresis Results Result Diagram: 09/06/16 0525 09/06/16 0520 Results 24 hrs Laboratory Tests Test 09/06/16 05:20 09/06/16 05:25 09/06/16 05:26 Sodium Level 141 Potassium Level 4.7 Chloride Level 108 Carbon Dioxide Level 16 L Anion Gap 22 H Blood Urea Nitrogen 99 H Creatinine 9.85 H Glucose Level 89 Calcium Level 7.9 L White Blood Count 9.8 Red Blood Count 3.45 L Hemoglobin 9.6 L Hematocrit 29.5 L Mean Corpuscular Volume 85.5 Mean Corpuscular Hemoglobin 27.8 L Mean Corpuscular Hemoglobin Concent 32.5 Red Cell Distribution Width 14.3 Platelet Count 270 Mean Platelet Volume 10.0 Neutrophils % 74.4 Lymphocytes % 15.5 Monocytes % 6.1 Eosinophils % 3.3 Basophils % 0.3 Nucleated Red Blood Cells % 0.0 Neutrophils # 7.3 Lymphocytes # 1.5 Monocytes # 0.6 Eosinophils # 0.3 Basophils # 0.0 Nucleated Red Blood Cells # 0.0 Prothrombin Time 14.1 Prothrombin Time Ratio 1.1 INR International Normalized Ratio 1.09 Activated Partial Thromboplast Time 28.4 Phosphorus Level 8.7 H Magnesium Level 1.9 Medications Medications Current Medications Ferrous Sulfate (Ferrous Sulfate (Ec)) 325 mg DAILY PO Last administered on 10:04; Admin Dose 325 MG; Start 09/05/16 at 09:00 Ondansetron HCl (Zofran Inj) 4 mg Q6H PRN IV NAUSEA AND/OR VOMITING; Start at 17:00 Acetaminophen (Tylenol Tab) 650 mg Q6H PRN PO PAIN LEVEL 1-3 OR FEVER Last administered on 09/05/16 04:10; Admin Dose 650 MG; Start 09/04/16 at 17:00 Morphine Sulfate (morphine) 2 mg Q4H PRN IV PAIN LEVEL 7-10; Start 09/04/16 at 17:00 Docusate Sodium (Colace) 100 mg Q12H PRN PO CONSTIPATION; Start 09/04/16 at 17: 00 Magnesium Hydroxide (Milk Of Mag) 30 ml DAILY PRN PO CONSTIPATION; Start at 17:00 Bisacodyl (Dulcolax Supp) 10 mg DAILY PRN [place] CONSTIPATION; Start 09/04/16 at 17 :00 Famotidine (Pepcid) 10 mg HS PO Last administered on 09/05/16 20:43; Admin Dose 10 MG; Start 09/04/16 at 21:00 Hydralazine HCl (Apresoline) 10 mg Q6H PRN IV ELEVATED BLOOD PRESSURE Last administered on 09/05/16 04:33; Admin Dose 10 MG; Start 09/04/16 at 17:30 Benzocaine (Orajel Maximum) 1 applic Q4H PRN MM mouth/gum pain; Start 09/04/16 at 23:30 Benazepril HCl (Lotensin) 10 mg DAILY PO Last administered on 09/06/16 10:06; Admin Dose 10 MG; Start 09/05/16 at 09:30 Atenolol (Tenormin) 50 mg BID GTB Last administered on 09/06/16 10:06; Admin Dose 50 MG; Start 09/05/16 at 09:30 Atorvastatin Calcium (Lipitor) 20 mg QHS PO Last administered on 09/05/16 20: 43; Admin Dose 20 MG; Start 09/05/16 at 21:00 Allopurinol (Zyloprim) 100 mg DAILY PO Last administered on 09/06/16 10:00; Admin Dose 100 MG; Start 09/05/16 at 14:00 Lorazepam (Ativan) 0.5 mg Q6H PRN PO ANXIETY; Start 09/05/16 at 18:00 CELSO GILLIAM MD Sep 06, 2016 16:01
[2016-09-06 18:01] LABS: ANA SCREEN POSITIVE (NEGATIVE)
[2016-09-06] MEDS: FAMOTIDINE 20 MG TAB PO SCH (20:23)
[2016-09-06] MEDS: ATORVASTATIN 20 MG TAB PO SCH (20:23)
[2016-09-06] MEDS: ACETAMINOPHEN 325 MG TAB PO PRN (20:26)
[2016-09-07] VITALS (19 sets, daily range): BP systolic 99–142; BP diastolic 56–76; PULSE 55–84; RESP 16–18
[2016-09-07] MEDS: LEVOTHYROXINE 137 MCG TAB PO SCH (06:04)
[2016-09-07 07:14] LABS: ADD SCAN DIFF NO
[2016-09-07 07:23] LABS: BASOPHILS % 0.3 % (0.0-2.0); EOSINOPHILS # 0.3 10^3/ul (0.0-0.5); EOSINOPHILS % 3.5 % (0.0-7.0); HEMATOCRIT 32.8 % (37.0-47.0); HEMOGLOBIN 10.5 g/dl (12.0-16.0); LYMPHOCYTES # 1.2 10^3/ul (0.8-2.9); LYMPHOCYTES % 12.8 % (15.0-51.0); MEAN CORPUSCULAR HEMOGLOBIN 27.4 pg (29.0-33.0); MEAN CORPUSCULAR VOLUME 85.6 fl (82.0-101.0); MONOCYTE # 0.6 10^3/ul (0.3-0.9); MONOCYTES % 6.1 % (0.0-11.0); NEUTROPHIL # 7.2 10^3/ul (1.6-7.5); NEUTROPHILS % 76.7 % (39.0-77.0); PLATELET COUNT 297 10^3/UL (140-415); RED BLOOD COUNT 3.83 10^6/ul (4.20-5.40); RED CELL DISTRIBUTION WIDTH 13.8 % (11.5-14.5); WHITE BLOOD COUNT 9.4 10^3/ul (4.8-10.8)
[2016-09-07 07:42] LABS: CALCIUM 8.3 mg/dl (8.4-10.2); CREATININE 8.09 mg/dl (0.44-1.00); POTASSIUM 4.5 mmol/L (3.5-5.1)
[2016-09-07 07:57] LABS: MAGNESIUM 1.8 mg/dl (1.7-2.5)
[2016-09-07] MEDS: CALCIUM ACETATE 667 MG CAP NGT SCH ×3 (09:44→18:32)
[2016-09-07] MEDS: BENAZEPRIL 10 MG TAB PO SCH (09:45)
[2016-09-07] MEDS: ATENOLOL 50 MG TAB GTB SCH ×2 (09:45→21:00)
[2016-09-07] MEDS: ALLOPURINOL 100 MG TAB PO SCH (09:45)
[2016-09-07] MEDS: FERROUS SULFATE (EC) 325 MG TAB PO SCH (09:46)
--- NOTE | 2016-09-07 15:06 | PN ---
Date/Time of Note Date/Time of Note DATE: 09/07/16 TIME: 15:00 Assessment/Plan VTE Prophylaxis VTE Prophylaxis Intervention: ambulation Lines/Catheters IV [facility] Type [facility]from [facility] [place] cath Urinary Cath still in place: No Assessment/Plan Assessment/Plan 55-year-old female with: 1. Advanced chronic kidney disease, now looks like nearing end-stage renal disease. S/p Perm Cath placement om 09/06 and plan for HD today per Nephrology and needs outpatient HD set up; will likely need HD for the next 1-2 days and will be d/c'd with outpatient follow-up/HD. Today she had 1.3 L removed on HD. Hep panel with Hep B positive otherwise negative and CXR clear. 2. Hyperkalemia. S/p Lasix and Kayexalate yesterday, resolved 3. Hypertension. Continue Atenolol and hydralazine p.r.n. 4. Anemia, likely acute on chronic 2ry to ESRD. S/p pRBC on admission. Iron panel, TSH, free T4, B12 and folate done Patient denies any dana bleeding. She just reports episodes where she has been having nosebleed and such, likely related to uremia and platelet malfunction at that time. 5. Hypothyroidism. TFTs stable, continue current dose of levothyroxine. 6. Hyperlipidemia. Continue statin therapy. 7. Gout?, uric acid up to 10.4, now on Allopurinol and no left foot pain today. Prophylaxis: Sequential compression devices to lower extremity for deep venous thrombosis prophylaxis. Pepcid for gastrointestinal prophylaxis. DISPOSITION: Telemetry, s/p PermCath placement on 09/06, initiation of HD per Nephrology. Subjective 24 Hr Interval Summary Free Text/Dictation Resting comfortably; no complaints. Constitutional: no complaints Exam/Review of Systems Vital Signs Vitals Vital Signs Date Time Temp Pulse Resp B/P Pulse Ox O2 Delivery O2 Flow Rate FiO2 09/07/16 12:02 60 09/07/16 11:16 98.9 18 116/76 98 09/07/16 03:59 Room Air Intake and Output 09/06/16 09/06/16 09/07/16 15:00 23:00 07:00 Intake Total 500 ml 750 ml 600 ml Output Total 1500 ml Balance -1000 ml 750 ml 600 ml Exam Constitutional: alert, oriented Psych: no complaints Head: normocephalic Eyes: nl conjunctiva ENMT: nl external ears & nose Neck: supple Respiratory: clear to auscultation Cardiovascular: regular rate and rhythm Gastrointestinal: soft Extremities: edema Results Result Diagram: 09/07/1621 09/07/16 0621 Results 24 hrs Laboratory Tests Test 09/07/16 06:21 White Blood Count 9.4 Red Blood Count 3.83 L Hemoglobin 10.5 L Hematocrit 32.8 L Mean Corpuscular Volume 85.6 Mean Corpuscular Hemoglobin 27.4 L Mean Corpuscular Hemoglobin Concent 32.0 Red Cell Distribution Width 13.8 Platelet Count 297 Mean Platelet Volume 10.0 Neutrophils % 76.7 Lymphocytes % 12.8 L Monocytes % 6.1 Eosinophils % 3.5 Basophils % 0.3 Nucleated Red Blood Cells % 0.0 Neutrophils # 7.2 Lymphocytes # 1.2 Monocytes # 0.6 Eosinophils # 0.3 Basophils # 0.0 Nucleated Red Blood Cells # 0.0 Sodium Level 141 Potassium Level 4.5 Chloride Level 100 Carbon Dioxide Level 22 Anion Gap 24 H Blood Urea Nitrogen 85 H Creatinine 8.09 H Glucose Level 94 Calcium Level 8.3 L Phosphorus Level 8.0 H Magnesium Level 1.8 Medications Medications Current Medications Ferrous Sulfate (Ferrous Sulfate (Ec)) 325 mg DAILY PO Last administered on 09:46; Admin Dose 325 MG; Start 09/05/16 at 09:00 Ondansetron HCl (Zofran Inj) 4 mg Q6H PRN IV NAUSEA AND/OR VOMITING Last administered on 09/07/16 12:39; Admin Dose 4 MG; Start 09/04/16 at 17:00 Acetaminophen (Tylenol Tab) 650 mg Q6H PRN PO PAIN LEVEL 1-3 OR FEVER Last administered on 09/06/16 20:26; Admin Dose 650 MG; Start 09/04/16 at 17:00 Morphine Sulfate (morphine) 2 mg Q4H PRN IV PAIN LEVEL 7-10; Start 09/04/16 at 17:00 Docusate Sodium (Colace) 100 mg Q12H PRN PO CONSTIPATION; Start 09/04/16 at 17: 00 Magnesium Hydroxide (Milk Of Mag) 30 ml DAILY PRN PO CONSTIPATION; Start at 17:00 Bisacodyl (Dulcolax Supp) 10 mg DAILY PRN [place] CONSTIPATION; Start 09/04/16 at 17 :00 Famotidine (Pepcid) 10 mg HS PO Last administered on 09/06/16 20:23; Admin Dose 10 MG; Start 09/04/16 at 21:00 Hydralazine HCl (Apresoline) 10 mg Q6H PRN IV ELEVATED BLOOD PRESSURE Last administered on 09/05/16 04:33; Admin Dose 10 MG; Start 09/04/16 at 17:30 Benzocaine (Orajel Maximum) 1 applic Q4H PRN MM mouth/gum pain; Start 09/04/16 at 23:30 Benazepril HCl (Lotensin) 10 mg DAILY PO Last administered on 09/07/16 09:45; Admin Dose 10 MG; Start 09/05/16 at 09:30 Atenolol (Tenormin) 50 mg BID GTB Last administered on 09/07/16 09:45; Admin Dose 50 MG; Start 09/05/16 at 09:30 Atorvastatin Calcium (Lipitor) 20 mg QHS PO Last administered on 09/06/16 20: 23; Admin Dose 20 MG; Start 09/05/16 at 21:00 Allopurinol (Zyloprim) 100 mg DAILY PO Last administered on 09/07/16 09:45; Admin Dose 100 MG; Start 09/05/16 at 14:00 Lorazepam (Ativan) 0.5 mg Q6H PRN PO ANXIETY; Start 09/05/16 at 18:00 WILLIE ROGERS MD Sep 07, 2016 15:06
[2016-09-07] MEDS: ATORVASTATIN 20 MG TAB PO SCH (21:07)
[2016-09-07] MEDS: FAMOTIDINE 20 MG TAB PO SCH (21:07)
--- NOTE | 2016-09-07 21:32 | CONS ---
Date/Time of Note Date/Time of Note DATE: 09/07/16 TIME: 21:25 Assessment/Plan Assessment/Plan Chief Complaint/Hosp Course Pt had HD done 2x already, creat still very high, will dialyze again in AM Problems: Additional Assessment/Plan Pt responded to Allopurinol Also increase PO4 binders ideally, it'd be carolyn to have avf placed but it can be done as out pt Cont'd Hospitalization Reason: see orders Consultation Date/Type/Reason Admit Date/Time Sep 04, 2016 at 16:40 Initial Consult Date Type of Consultation: Renal 24 HR Interval Summary Free Text/Dictation Pt is in good spirits, no new complaints Exam/Review of Systems Vital Signs Vitals Vital Signs Date Time Temp Pulse Resp B/P Pulse Ox O2 Delivery O2 Flow Rate FiO2 09/07/16 20:15 62 09/07/16 15:45 97.9 17 99/62 98 09/07/16 03:59 Room Air Intake and Output 09/06/16 09/06/16 09/07/16 15:00 23:00 07:00 Intake Total 500 ml 750 ml 600 ml Output Total 1500 ml Balance -1000 ml 750 ml 600 ml Exam Constitutional: alert, oriented, well developed Psych: nl mood/affect, no complaints Head: atraumatic, normocephalic Eyes: EOMI, PERRL, nl conjunctiva, nl lids, nl sclera ENMT: nl external ears & nose, nl lips & teeth, nl nasal mucosa & septum Neck: non-tender, supple Respiratory: clear to auscultation, normal air movement, other (Rt chest wall permacth in place) Cardiovascular: nl pulses, regular rate and rhythm Gastrointestinal: nl liver, spleen, non-tender, soft Musculoskeletal: nl extremities to inspection, nl gait and stance Extremities: normal pulses Neurological: ANIMAL CARE GIVER II-XII intact, nl mental status, nl speech, nl strength Skin: nl turgor, No rash or lesions Lymph: nl lymph nodes Results Uric Acid is over 10, PO4 is still high Result Diagram: 09/07/1662009/07/16620 Results 24 hrs Laboratory Tests Test 09/07/16 06:21 White Blood Count 9.4 Red Blood Count 3.83 L Hemoglobin 10.5 L Hematocrit 32.8 L Mean Corpuscular Volume 85.6 Mean Corpuscular Hemoglobin 27.4 L Mean Corpuscular Hemoglobin Concent 32.0 Red Cell Distribution Width 13.8 Platelet Count 297 Mean Platelet Volume 10.0 Neutrophils % 76.7 Lymphocytes % 12.8 L Monocytes % 6.1 Eosinophils % 3.5 Basophils % 0.3 Nucleated Red Blood Cells % 0.0 Neutrophils # 7.2 Lymphocytes # 1.2 Monocytes # 0.6 Eosinophils # 0.3 Basophils # 0.0 Nucleated Red Blood Cells # 0.0 Sodium Level 141 Potassium Level 4.5 Chloride Level 100 Carbon Dioxide Level 22 Anion Gap 24 H Blood Urea Nitrogen 85 H Creatinine 8.09 H Glucose Level 94 Calcium Level 8.3 L Phosphorus Level 8.0 H Magnesium Level 1.8 Medications Medications Current Medications Ferrous Sulfate (Ferrous Sulfate (Ec)) 325 mg DAILY PO Last administered on 09:46; Admin Dose 325 MG; Start 09/05/16 at 09:00 Ondansetron HCl (Zofran Inj) 4 mg Q6H PRN IV NAUSEA AND/OR VOMITING Last administered on 09/07/16 12:39; Admin Dose 4 MG; Start 09/04/16 at 17:00 Acetaminophen (Tylenol Tab) 650 mg Q6H PRN PO PAIN LEVEL 1-3 OR FEVER Last administered on 09/06/16 20:26; Admin Dose 650 MG; Start 09/04/16 at 17:00 Morphine Sulfate (morphine) 2 mg Q4H PRN IV PAIN LEVEL 7-10; Start 09/04/16 at 17:00 Docusate Sodium (Colace) 100 mg Q12H PRN PO CONSTIPATION; Start 09/04/16 at 17: 00 Magnesium Hydroxide (Milk Of Mag) 30 ml DAILY PRN PO CONSTIPATION; Start at 17:00 Bisacodyl (Dulcolax Supp) 10 mg DAILY PRN [place] CONSTIPATION; Start 09/04/16 at 17 :00 Famotidine (Pepcid) 10 mg HS PO Last administered on 09/07/16 21:07; Admin Dose 10 MG; Start 09/04/16 at 21:00 Hydralazine HCl (Apresoline) 10 mg Q6H PRN IV ELEVATED BLOOD PRESSURE Last administered on 09/05/16 04:33; Admin Dose 10 MG; Start 09/04/16 at 17:30 Benzocaine (Orajel Maximum) 1 applic Q4H PRN MM mouth/gum pain; Start 09/04/16 at 23:30 Benazepril HCl (Lotensin) 10 mg DAILY PO Last administered on 09/07/16 09:45; Admin Dose 10 MG; Start 09/05/16 at 09:30 Atenolol (Tenormin) 50 mg BID GTB Last administered on 09/07/16 09:45; Admin Dose 50 MG; Start 09/05/16 at 09:30 Atorvastatin Calcium (Lipitor) 20 mg QHS PO Last administered on 09/07/16 21: 07; Admin Dose 20 MG; Start 09/05/16 at 21:00 Allopurinol (Zyloprim) 100 mg DAILY PO Last administered on 09/07/16 09:45; Admin Dose 100 MG; Start 09/05/16 at 14:00 Lorazepam (Ativan) 0.5 mg Q6H PRN PO ANXIETY; Start 09/05/16 at 18:00 JACOBO RUDOLPH MD Sep 07, 2016 21:32
[2016-09-08] VITALS (20 sets, daily range): BP systolic 92–125; BP diastolic 52–70; PULSE 57–69; RESP 17–20
[2016-09-08] MEDS: LEVOTHYROXINE 137 MCG TAB PO SCH (06:36)
[2016-09-08] MEDS ORDERED: CALCIUM ACETATE 667 MG CAP NGT SCH (07:55)
[2016-09-08] MEDS: FERROUS SULFATE (EC) 325 MG TAB PO SCH (08:29)
[2016-09-08] MEDS: CALCIUM ACETATE 667 MG CAP NGT SCH ×3 (08:29→17:42)
[2016-09-08] MEDS: BENAZEPRIL 10 MG TAB PO SCH (08:29)
[2016-09-08] MEDS: ATENOLOL 50 MG TAB GTB SCH ×2 (08:29→20:45)
[2016-09-08] MEDS: ALLOPURINOL 100 MG TAB PO SCH (08:29)
--- NOTE | 2016-09-08 13:58 | PN ---
Date/Time of Note Date/Time of Note DATE: 09/08/16 TIME: 13:54 Assessment/Plan VTE Prophylaxis VTE Prophylaxis Intervention: ambulation, SCD's Lines/Catheters IV Catheter Type (from Nrsg): perma cath Urinary Cath still in place: No Subjective 24 Hr Interval Summary Free Text/Dictation Feeling a little weak after HD, otherwise no complaints. Exam/Review of Systems Vital Signs Vitals Vital Signs Date Time Temp Pulse Resp B/P Pulse Ox O2 Delivery O2 Flow Rate FiO2 09/08/16 12:05 62 09/08/16 11:20 97.5 17 113/62 94 09/07/16 03:59 Room Air Intake and Output 09/07/16 09/07/16 09/08/16 14:59 22:59 06:59 Intake Total 500 ml 950 ml 400 ml Output Total 1800 ml 1300 ml Balance -1300 ml -350 ml 400 ml Exam Constitutional: alert, oriented Head: normocephalic Eyes: EOMI, nl conjunctiva ENMT: nl external ears & nose Neck: supple Respiratory: clear to auscultation Cardiovascular: regular rate and rhythm Gastrointestinal: soft Extremities: edema Results Result Diagram: 09/07/1662009/07/16620 Medications Medications Current Medications Ferrous Sulfate (Ferrous Sulfate (Ec)) 325 mg DAILY PO Last administered on 08:29; Admin Dose 325 MG; Start 09/05/16 at 09:00 Ondansetron HCl (Zofran Inj) 4 mg Q6H PRN IV NAUSEA AND/OR VOMITING Last administered on 09/07/16 12:39; Admin Dose 4 MG; Start 09/04/16 at 17:00 Acetaminophen (Tylenol Tab) 650 mg Q6H PRN PO PAIN LEVEL 1-3 OR FEVER Last administered on 09/06/16 20:26; Admin Dose 650 MG; Start 09/04/16 at 17:00 Morphine Sulfate (morphine) 2 mg Q4H PRN IV PAIN LEVEL 7-10; Start 09/04/16 at 17:00 Docusate Sodium (Colace) 100 mg Q12H PRN PO CONSTIPATION; Start 09/04/16 at 17: 00 Magnesium Hydroxide (Milk Of Mag) 30 ml DAILY PRN PO CONSTIPATION; Start at 17:00 Bisacodyl (Dulcolax Supp) 10 mg DAILY PRN [place] CONSTIPATION; Start 09/04/16 at 17 :00 Famotidine (Pepcid) 10 mg HS PO Last administered on 09/07/16 21:07; Admin Dose 10 MG; Start 09/04/16 at 21:00 Hydralazine HCl (Apresoline) 10 mg Q6H PRN IV ELEVATED BLOOD PRESSURE Last administered on 09/05/16 04:33; Admin Dose 10 MG; Start 09/04/16 at 17:30 Benzocaine (Orajel Maximum) 1 applic Q4H PRN MM mouth/gum pain; Start 09/04/16 at 23:30 Benazepril HCl (Lotensin) 10 mg DAILY PO Last administered on 09/07/16 09:45; Admin Dose 10 MG; Start 09/05/16 at 09:30 Atenolol (Tenormin) 50 mg BID GTB Last administered on 09/07/16 09:45; Admin Dose 50 MG; Start 09/05/16 at 09:30 Atorvastatin Calcium (Lipitor) 20 mg QHS PO Last administered on 09/07/16 21: 07; Admin Dose 20 MG; Start 09/05/16 at 21:00 Allopurinol (Zyloprim) 100 mg DAILY PO Last administered on 09/08/16 08:29; Admin Dose 100 MG; Start 09/05/16 at 14:00 Lorazepam (Ativan) 0.5 mg Q6H PRN PO ANXIETY; Start 09/05/16 at 18:00 Procedures Procedures 55-year-old female with: 1. Advanced chronic kidney disease, now looks like nearing end-stage renal disease. S/p Perm Cath placement on 09/06 and plan for HD today per Nephrology and needs outpatient HD set up at [facility]; will likely be d/ c'd with outpatient follow-up/HD today or tomorrow. Yesterday, she had 1.3 L removed on HD. On HD now. Hep panel with Hep B positive otherwise negative and CXR clear. 2. Hypertension. Continue Atenolol and hydralazine p.r.n. 3. Anemia, likely acute on chronic 2ry to ESRD. S/p pRBC on admission. Iron panel, TSH, free T4, B12 and folate done Patient denies any dana bleeding. She just reports episodes where she has been having nosebleed and such, likely related to uremia and platelet malfunction at that time. 4. Hypothyroidism. TFTs stable, continue current dose of levothyroxine. 5. Hyperlipidemia. Continue statin therapy. 6. Gout?, uric acid up to 10.4, now on Allopurinol and no left foot pain today. Prophylaxis: Sequential compression devices to lower extremity for deep venous thrombosis prophylaxis. Pepcid for gastrointestinal prophylaxis. DISPOSITION: Will d/c home no later than tomorrow (if clinically stable) and follow-up with Dr. Spears for outpatient HD. WILLIE ROGERS MD Sep 08, 2016 13:57
[2016-09-08] MEDS: FAMOTIDINE 20 MG TAB PO SCH (20:44)
[2016-09-08] MEDS: ATORVASTATIN 20 MG TAB PO SCH (20:44)
--- NOTE | 2016-09-08 21:35 | CONS ---
Date/Time of Note Date/Time of Note DATE: 09/08/16 TIME: 21:32 Assessment/Plan Assessment/Plan Chief Complaint/Hosp Course spoke to daughter re pt to consider PD instead of HD as an option She us reading up, hopefully will decide once V Sx arrives to see pt Problems: Additional Assessment/Plan Pt tolerated hd this afyernoon Consultation Date/Type/Reason Admit Date/Time Sep 04, 2016 at 16:40 Type of Consultation: Renal 24 HR Interval Summary Free Text/Dictation Daughter at bedside Exam/Review of Systems Vital Signs Vitals Vital Signs Date Time Temp Pulse Resp B/P Pulse Ox O2 Delivery O2 Flow Rate FiO2 09/08/16 20:03 69 09/08/16 15:30 18 09/08/16 15:28 98.5 92/52 96 09/07/16 03:59 Room Air Intake and Output 09/07/16 09/07/16 09/08/16 15:00 23:00 07:00 Intake Total 500 ml 950 ml 400 ml Output Total 1800 ml 1300 ml Balance -1300 ml -350 ml 400 ml Exam Constitutional: alert, oriented, well developed Psych: nl mood/affect, no complaints Head: atraumatic, normocephalic Eyes: EOMI, PERRL, nl conjunctiva, nl lids, nl sclera ENMT: nl external ears & nose, nl lips & teeth, nl nasal mucosa & septum Neck: non-tender, other (rt chest wall permacath in place), supple Respiratory: clear to auscultation, normal air movement Cardiovascular: nl pulses, regular rate and rhythm Gastrointestinal: nl liver, spleen, non-tender, soft Musculoskeletal: nl extremities to inspection, nl gait and stance Extremities: normal pulses Neurological: LOOM WINDER TENDER II-XII intact, nl mental status, nl speech, nl strength Skin: nl turgor, No rash or lesions Lymph: nl lymph nodes Results Result Diagram: 09/07/1662009/07/16620 Medications Medications Current Medications Ferrous Sulfate (Ferrous Sulfate (Ec)) 325 mg DAILY PO Last administered on 08:29; Admin Dose 325 MG; Start 09/05/16 at 09:00 Ondansetron HCl (Zofran Inj) 4 mg Q6H PRN IV NAUSEA AND/OR VOMITING Last administered on 09/07/16 12:39; Admin Dose 4 MG; Start 09/04/16 at 17:00 Acetaminophen (Tylenol Tab) 650 mg Q6H PRN PO PAIN LEVEL 1-3 OR FEVER Last administered on 09/06/16 20:26; Admin Dose 650 MG; Start 09/04/16 at 17:00 Morphine Sulfate (morphine) 2 mg Q4H PRN IV PAIN LEVEL 7-10; Start 09/04/16 at 17:00 Docusate Sodium (Colace) 100 mg Q12H PRN PO CONSTIPATION; Start 09/04/16 at 17: 00 Magnesium Hydroxide (Milk Of Mag) 30 ml DAILY PRN PO CONSTIPATION; Start at 17:00 Bisacodyl (Dulcolax Supp) 10 mg DAILY PRN [place] CONSTIPATION; Start 09/04/16 at 17 :00 Famotidine (Pepcid) 10 mg HS PO Last administered on 09/08/16 20:44; Admin Dose 10 MG; Start 09/04/16 at 21:00 Hydralazine HCl (Apresoline) 10 mg Q6H PRN IV ELEVATED BLOOD PRESSURE Last administered on 09/05/16 04:33; Admin Dose 10 MG; Start 09/04/16 at 17:30 Benzocaine (Orajel Maximum) 1 applic Q4H PRN MM mouth/gum pain; Start 09/04/16 at 23:30 Benazepril HCl (Lotensin) 10 mg DAILY PO Last administered on 09/07/16 09:45; Admin Dose 10 MG; Start 09/05/16 at 09:30 Atenolol (Tenormin) 50 mg BID GTB Last administered on 09/08/16 20:45; Admin Dose 50 MG; Start 09/05/16 at 09:30 Atorvastatin Calcium (Lipitor) 20 mg QHS PO Last administered on 09/08/16 20: 44; Admin Dose 20 MG; Start 09/05/16 at 21:00 Allopurinol (Zyloprim) 100 mg DAILY PO Last administered on 09/08/16 08:29; Admin Dose 100 MG; Start 09/05/16 at 14:00 Lorazepam (Ativan) 0.5 mg Q6H PRN PO ANXIETY; Start 09/05/16 at 18:00 JACOBO RUDOLPH MD Sep 08, 2016 21:34
[2016-09-09] VITALS (9 sets, daily range): BP systolic 115–148; BP diastolic 63–73; PULSE 60–66; RESP 16–20
[2016-09-09 06:18] LABS: ADD SCAN DIFF NO
[2016-09-09 06:27] LABS: BASOPHILS % 0.4 % (0.0-2.0); EOSINOPHILS # 0.4 10^3/ul (0.0-0.5); HEMATOCRIT 31.3 % (37.0-47.0); HEMOGLOBIN 10.3 g/dl (12.0-16.0); LYMPHOCYTES # 1.2 10^3/ul (0.8-2.9); LYMPHOCYTES % 12.8 % (15.0-51.0); MEAN CORPUSCULAR HEMOGLOBIN 27.9 pg (29.0-33.0); MEAN CORPUSCULAR HGB CONC 32.9 g/dl (32.0-37.0); MEAN CORPUSCULAR VOLUME 84.8 fl (82.0-101.0); MEAN PLATELET VOLUME 9.7 fl (7.4-10.4); MONOCYTE # 0.9 10^3/ul (0.3-0.9); MONOCYTES % 9.2 % (0.0-11.0); NEUTROPHIL # 6.8 10^3/ul (1.6-7.5); NEUTROPHILS % 73.3 % (39.0-77.0); PLATELET COUNT 252 10^3/UL (140-415); RED BLOOD COUNT 3.69 10^6/ul (4.20-5.40); RED CELL DISTRIBUTION WIDTH 13.2 % (11.5-14.5); WHITE BLOOD COUNT 9.2 10^3/ul (4.8-10.8)
[2016-09-09] MEDS: LEVOTHYROXINE 137 MCG TAB PO SCH (06:37)
[2016-09-09 06:54] LABS: ALBUMIN 4.3 g/dl (3.3-4.9); CALCIUM 7.9 mg/dl (8.4-10.2); CREATININE 5.21 mg/dl (0.44-1.00); PHOSPHORUS 5.5 mg/dl (2.5-4.9); POTASSIUM 3.9 mmol/L (3.5-5.1)
[2016-09-09] MEDS: CALCIUM ACETATE 667 MG CAP NGT SCH ×3 (08:15→17:33)
[2016-09-09] MEDS: BENAZEPRIL 10 MG TAB PO SCH (08:15)
[2016-09-09] MEDS: ATENOLOL 50 MG TAB GTB SCH ×2 (08:15→20:58)
[2016-09-09] MEDS: FERROUS SULFATE (EC) 325 MG TAB PO SCH (08:15)
[2016-09-09] MEDS: ALLOPURINOL 100 MG TAB PO SCH (08:16)
--- NOTE | 2016-09-09 09:28 | PN ---
Date/Time of Note Date/Time of Note DATE: 09/09/16 TIME: 09:27 Assessment/Plan VTE Prophylaxis VTE Prophylaxis Intervention: ambulation Lines/Catheters IV [facility] (from [facility] [place] Urinary Cath still in place: No Assessment/Plan Assessment/Plan 1. end stage renal disease, plan to arrange outpatient HD and dc home Subjective 24 Hr Interval Summary Free Text/Dictation no complaints eating ok ambulating in room Exam/Review of Systems Vital Signs Vitals Vital Signs Date Time Temp Pulse Resp B/P Pulse Ox O2 Delivery O2 Flow Rate FiO2 09/09/16 08:01 60 09/09/16 07:15 98.3 16 117/66 98 09/09/16 00:00 Room Air Intake and Output 09/08/16 09/08/16 09/09/16 14:59 22:59 06:59 Intake Total 1300 ml 500 ml Output Total 850 ml 2 ml Balance 450 ml 498 ml Exam Constitutional: alert Psych: no complaints Respiratory: clear to auscultation Cardiovascular: regular rate and rhythm Results Result Diagram: 09/09/16 0545 09/09/16 0545 Results 24 hrs Laboratory Tests Test 09/09/16 05:45 White Blood Count 9.2 Red Blood Count 3.69 L Hemoglobin 10.3 L Hematocrit 31.3 L Mean Corpuscular Volume 84.8 Mean Corpuscular Hemoglobin 27.9 L Mean Corpuscular Hemoglobin Concent 32.9 Red Cell Distribution Width 13.2 Platelet Count 252 Mean Platelet Volume 9.7 Neutrophils % 73.3 Lymphocytes % 12.8 L Monocytes % 9.2 Eosinophils % 4.0 Basophils % 0.4 Nucleated Red Blood Cells % 0.0 Neutrophils # 6.8 Lymphocytes # 1.2 Monocytes # 0.9 Eosinophils # 0.4 Basophils # 0.0 Nucleated Red Blood Cells # 0.0 Sodium Level 133 L Potassium Level 3.9 Chloride Level 92 L Carbon Dioxide Level 28 Anion Gap 17 #H Blood Urea Nitrogen 35 #H Creatinine 5.21 #H Glucose Level 93 Calcium Level 7.9 L Phosphorus Level 5.5 #H Albumin 4.3 Medications Medications Current Medications Ferrous Sulfate (Ferrous Sulfate (Ec)) 325 mg DAILY PO Last administered on t 08:15; Admin Dose 325 MG; Start 09/05/16 at 09:00 Ondansetron HCl (Zofran Inj) 4 mg Q6H PRN IV NAUSEA AND/OR VOMITING Last administered on 09/07/16 12:39; Admin Dose 4 MG; Start 09/04/16 at 17:00 Acetaminophen (Tylenol Tab) 650 mg Q6H PRN PO PAIN LEVEL 1-3 OR FEVER Last administered on 09/06/16 20:26; Admin Dose 650 MG; Start 09/04/16 at 17:00 Morphine Sulfate (morphine) 2 mg Q4H PRN IV PAIN LEVEL 7-10; Start 09/04/16 at 17:00 Docusate Sodium (Colace) 100 mg Q12H PRN PO CONSTIPATION Last administered on 08:15; Admin Dose 100 MG; Start 09/04/16 at 17:00 Magnesium Hydroxide (Milk Of Mag) 30 ml DAILY PRN PO CONSTIPATION; Start at 17:00 Bisacodyl (Dulcolax Supp) 10 mg DAILY PRN [place] CONSTIPATION; Start 09/04/16 at 17 :00 Famotidine (Pepcid) 10 mg HS PO Last administered on 09/08/16 20:44; Admin Dose 10 MG; Start 09/04/16 at 21:00 Hydralazine HCl (Apresoline) 10 mg Q6H PRN IV ELEVATED BLOOD PRESSURE Last administered on 09/05/16 04:33; Admin Dose 10 MG; Start 09/04/16 at 17:30 Benzocaine (Orajel Maximum) 1 applic Q4H PRN MM mouth/gum pain; Start 09/04/16 at 23:30 Benazepril HCl (Lotensin) 10 mg DAILY PO Last administered on 09/09/16 08:15; Admin Dose 10 MG; Start 09/05/16 at 09:30 Atenolol (Tenormin) 50 mg BID GTB Last administered on 09/09/16 08:15; Admin Dose 50 MG; Start 09/05/16 at 09:30 Atorvastatin Calcium (Lipitor) 20 mg QHS PO Last administered on 09/08/16 20: 44; Admin Dose 20 MG; Start 09/05/16 at 21:00 Allopurinol (Zyloprim) 100 mg DAILY PO Last administered on 09/09/16 08:16; Admin Dose 100 MG; Start 6/22/17 at 14:00 Lorazepam (Ativan) 0.5 mg Q6H PRN PO ANXIETY; Start 09/05/16 at 18:00 CONNIE DELGADILLO MD Sep 09, 2016 09:28
[2016-09-09] MEDS ORDERED: CALC667C PO (09:33)
[2016-09-09] MEDS ORDERED: ATOR20TA65 PO (09:33)
[2016-09-09] MEDS ORDERED: FER325 PO (09:33)
[2016-09-09] MEDS ORDERED: ATEN50TA GTB (09:33)
--- NOTE | 2016-09-09 09:35 | PDOCDIS ---
Discharge Instructions CONDITION Patient Condition: Fair HOME CARE INSTRUCTIONS: Diet Instructions: 2gm Na ACTIVITY: Activity Restrictions: Slowly Increase Activity FOLLOW UP/APPOINTMENTS Follow-up Plan 1. follow up with dialysis as scheduled 2. you will need to have a permanent dialysis access placed, we will contact you to help arrange this REFERRALS Other Referrals 1. surgery/vascular surgery CONNIE DELGADILLO MD Sep 09, 2016 09:35
--- NOTE | 2016-09-09 09:47 | HP ---
DATE OF ADMISSION: 09/04/2016 SURGERY CONSULTATION Dear Doctors: Ms. Yen is a 55-year-old female with history of chronic kidney disease stage IV to V impending end-stage renal, who had recently had progression of her renal disease. Patient has received a righ t chest wall permanent catheter for her dialysis sessions and consultation was obtained for evaluati on of a fistula creation and possible peritoneal dialysis catheter. At the moment, the patient td es shortness of breath, chest pain, nausea, vomiting, fever or chills. Patient denies upper extremi ty claudication or rest pain-like symptoms. REVIEW OF SYSTEMS: A 14-point review performed and negative except what is mentioned in the HPI. PAST MEDICAL HISTORY: Entails hypertension, hyperlipidemia, chronic kidney disease stage 4 to 5, an emia of chronic disease. PAST SURGICAL HISTORY: x1. SOCIAL HISTORY: Denies tobacco, alcohol or illicit drug use. PHYSICAL EXAMINATION: GENERAL: Alert and oriented x3. No apparent distress. HEENT: Normocephalic, atraumatic. PERRLA, EOMI. Mucosa moist. NECK: Supple. No carotid bruit. PULMONARY: Clear to auscultation bilaterally. No crackles. CARDIOVASCULAR: S1, S2 present. No murmurs. ABDOMEN: Soft, nontender, nondistended. Bowel sounds positive. EXTREMITIES: Lower extremities, palpable femoral pulse, palpable pedal pulse. Motor, sensory intac t. Cap refill 2 to 3 seconds. ASSESSMENT AND PLAN: Chronic kidney disease stage IV to V, impending end-stage renal: It seems the patient's renal disease has progressed to end-stage renal requiring hemodialysis. At the moment, t he patient has received a right chest wall PermCath in which she gets her dialysis sessions. We wi ll plan to obtain bilateral upper extremity vein mapping and arterial duplex of the upper extremitie s for the patient for fistula creation. Further I spoke with the exception about peritoneal dialysi s catheter. The patient did not seem inclined to want to have that done and felt more of doing a fi stula creation. We will plan with our multidisciplinary team, as the best way to provide her the op tions that the patient would like to choose. Would recommend for the patient to have cardiac evaluation for clearance. We will plan schedule the patient in the next day or 2. Optimize vascular status (BP meds, diet, nutrition, exercise, sugar control, antiplatelets). Discussed findings, plan and management with the patient. She understands and also with a certified cassandra architect. Thank you for allowing us to participate in the care of your patient. Please call with any questions . Dictated By: ADELFO MORROW/KENNY Conf#: [id number] DID#: [id number]
[2016-09-09 16:14] LABS: ANA TITER 1:40 titer
--- NOTE | 2016-09-09 17:14 | RADRPT ---
PROCEDURE: US Bilateral Upper Extremity Veins. CLINICAL INDICATION: Bilateral upper extremity swelling. Venous diameter for dialysis fistula plan stephen. TECHNIQUE: Multiple longitudinal and transverse images of the bilateral upper extremity venous radha e was obtained with roque scale and color Doppler imaging. COMPARISON: None available FINDINGS: The subclavian veins, axillary, brachial, basilic, and cephalic veins are patent bilaterally. There is normal flow with augmentation and compressibility throughout. There is no thrombus or occlusion. Diameters are as follows: Right arm cephalic upper: 0.43 cm. Right arm cephalic mid: 0.45 cm. Right arm cephalic lower: 0.39 cm. Right forearm cephalic upper: 0.42 cm. Right forearm cephalic mid: 0.33 cm. Right forearm cephalic lower: 0.26 cm. Right arm basilic upper: 0.62 cm. Right arm basilic mid: 0.45 cm. Right arm basilic lower: 0.38 cm. Right forearm basilic upper: 0.36 cm. Right forearm basilic mid: 0.26 cm. Right forearm basilic lower: 0.20 cm. Left arm cephalic upper: 0.41 cm. Left arm cephalic mid: 0.40 cm. Left arm cephalic lower: 0.45 cm. Left forearm cephalic upper: 0.33 cm. Left forearm cephalic mid: 0.29 cm. Left forearm cephalic lower: 0.27 cm. Left arm basilic upper: 0.44 cm. Left arm basilic mid: 0.47 cm. Left arm basilic lower: 0.39 cm. Left forearm basilic upper: 0.22 cm. Left forearm basilic mid: 0.16 cm. Left forearm basilic lower: 0.15 cm. IMPRESSION: 1. Normal venous system of the upper extremities. No evidence of thrombus or occlusion. 2. The diameter of the vessels as indicated above. RPTAT: QQ .Jay Guevara MD, Date Time Electronically viewed and signed by .Jay Guevara MD, on 09/09/2016 17:13 .R/
--- NOTE | 2016-09-09 17:16 | RADRPT ---
PROCEDURE: US bilateral upper extremity arterial system. CLINICAL INDICATION: Bilateral upper extremity pain and swelling. Preoperative for dialysis AV fis rei. TECHNIQUE: Multiple longitudinal and transverse images of the bilateral upper extremity arterial t ree was obtained with roque scale pulsed Doppler, and color Doppler imaging. COMPARISON: None available FINDINGS: The bilateral subclavian artery, axillary artery, brachial artery, radial artery, and ulnar artery a re all normal. There is no thrombus or occlusion. There is no significant stenosis. There is normal triphasic flow throughout bilaterally. Peak systolic velocities are as follows: Right: Subclavian: 87 cm/sec Axillary: 90 cm/sec Brachial: 75 cm/sec Radial: 73 cm/sec Ulnar: 71 cm/sec The right brachial artery systolic pressure is 135 mmHg. Left: Subclavian: 131 cm/sec Axillary: 74 cm/sec Brachial: 86 cm/sec Radial: 58 cm/sec Ulnar: 63 cm/sec The left brachial artery systolic pressure is 125 mmHg. IMPRESSION: 1. Normal bilateral upper extremity arterial system. RPTAT: QQ .Jay Guevara MD, Date Time Electronically viewed and signed by .Jay Guevara MD, MD on 09/09/2016 17:15 .R/
--- NOTE | 2016-09-09 20:51 | CONS ---
Date/Time of Note Date/Time of Note DATE: 09/09/16 TIME: 20:48 Assessment/Plan Assessment/Plan Chief Complaint/Hosp Course spoke to daughter re pt to consider PD instead of HD as an option She us reading up, hopefully will decide once V Sx arrives to see pt Problems: Additional Assessment/Plan Will have AVF placed in AM. HD in AM, Arrange for outpt HD underway Cont'd Hospitalization Reason: Pt decided to stick with HD Consultation Date/Type/Reason Admit Date/Time Sep 04, 2016 at 16:40 Type of Consultation: Renal 24 HR Interval Summary Free Text/Dictation Pt is in good spirits no new complaints Exam/Review of Systems Vital Signs Vitals Vital Signs Date Time Temp Pulse Resp B/P Pulse Ox O2 Delivery O2 Flow Rate FiO2 09/09/16 20:02 98.4 64 18 148/73 97 09/09/16 00:00 Room Air Intake and Output 09/08/16 09/08/16 09/09/16 15:00 23:00 07:00 Intake Total 1300 ml 500 ml Output Total 850 ml 2 ml Balance 450 ml 498 ml Exam Constitutional: alert, oriented, well developed Psych: nl mood/affect, no complaints Head: atraumatic, normocephalic Eyes: EOMI, PERRL, nl conjunctiva, nl lids, nl sclera ENMT: nl external ears & nose, nl lips & teeth, nl nasal mucosa & septum Neck: non-tender, supple Respiratory: clear to auscultation, normal air movement, other (Rt chest wall permacath in place) Cardiovascular: nl pulses, regular rate and rhythm Gastrointestinal: nl liver, spleen, non-tender, soft Musculoskeletal: nl extremities to inspection, nl gait and stance Extremities: normal pulses 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, nl mental status, nl speech, nl strength Skin: nl turgor, No rash or lesions Lymph: nl lymph nodes Results Result Diagram: 09/09/16 0545 09/09/16 0545 Results 24 hrs Laboratory Tests Test 09/09/16 05:45 White Blood Count 9.2 Red Blood Count 3.69 L Hemoglobin 10.3 L Hematocrit 31.3 L Mean Corpuscular Volume 84.8 Mean Corpuscular Hemoglobin 27.9 L Mean Corpuscular Hemoglobin Concent 32.9 Red Cell Distribution Width 13.2 Platelet Count 252 Mean Platelet Volume 9.7 Neutrophils % 73.3 Lymphocytes % 12.8 L Monocytes % 9.2 Eosinophils % 4.0 Basophils % 0.4 Nucleated Red Blood Cells % 0.0 Neutrophils # 6.8 Lymphocytes # 1.2 Monocytes # 0.9 Eosinophils # 0.4 Basophils # 0.0 Nucleated Red Blood Cells # 0.0 Sodium Level 133 L Potassium Level 3.9 Chloride Level 92 L Carbon Dioxide Level 28 Anion Gap 17 #H Blood Urea Nitrogen 35 #H Creatinine 5.21 #H Glucose Level 93 Calcium Level 7.9 L Phosphorus Level 5.5 #H Albumin 4.3 Medications Medications Current Medications Ferrous Sulfate (Ferrous Sulfate (Ec)) 325 mg DAILY PO Last administered on 08:15; Admin Dose 325 MG; Start 09/05/16 at 09:00 Ondansetron HCl (Zofran Inj) 4 mg Q6H PRN IV NAUSEA AND/OR VOMITING Last administered on 09/07/16 12:39; Admin Dose 4 MG; Start 09/04/16 at 17:00 Acetaminophen (Tylenol Tab) 650 mg Q6H PRN PO PAIN LEVEL 1-3 OR FEVER Last administered on 09/06/16 20:26; Admin Dose 650 MG; Start 09/04/16 at 17:00 Morphine Sulfate (morphine) 2 mg Q4H PRN IV PAIN LEVEL 7-10; Start 09/04/16 at 17:00 Docusate Sodium (Colace) 100 mg Q12H PRN PO CONSTIPATION Last administered on 08:15; Admin Dose 100 MG; Start 09/04/16 at 17:00 Magnesium Hydroxide (Milk Of Mag) 30 ml DAILY PRN PO CONSTIPATION; Start at 17:00 Bisacodyl (Dulcolax Supp) 10 mg DAILY PRN [place] CONSTIPATION; Start 09/04/16 at 17 :00 Famotidine (Pepcid) 10 mg HS PO Last administered on 09/08/16 20:44; Admin Dose 10 MG; Start 09/04/16 at 21:00 Hydralazine HCl (Apresoline) 10 mg Q6H PRN IV ELEVATED BLOOD PRESSURE Last administered on 09/05/16 04:33; Admin Dose 10 MG; Start 09/04/16 at 17:30 Benzocaine (Orajel Maximum) 1 applic Q4H PRN MM mouth/gum pain; Start 09/04/16 at 23:30 Benazepril HCl (Lotensin) 10 mg DAILY PO Last administered on 09/09/16 08:15; Admin Dose 10 MG; Start 09/05/16 at 09:30 Atenolol (Tenormin) 50 mg BID GTB Last administered on 09/09/16 08:15; Admin Dose 50 MG; Start 09/05/16 at 09:30 Atorvastatin Calcium (Lipitor) 20 mg QHS PO Last administered on 09/08/16 20: 44; Admin Dose 20 MG; Start 09/05/16 at 21:00 Allopurinol (Zyloprim) 100 mg DAILY PO Last administered on 09/09/16 08:16; Admin Dose 100 MG; Start 09/05/16 at 14:00 Lorazepam (Ativan) 0.5 mg Q6H PRN PO ANXIETY; Start 09/05/16 at 18:00 JACOBO RUDOLPH MD Sep 09, 2016 20:51
[2016-09-09] MEDS: ATORVASTATIN 20 MG TAB PO SCH (20:58)
[2016-09-09] MEDS: FAMOTIDINE 20 MG TAB PO SCH (20:58)
[2016-09-10] VITALS (24 sets, daily range): BP systolic 100–170; BP diastolic 54–84; PULSE 53–79; RESP 14–19
[2016-09-10] MEDS ORDERED: THROMBIN 5000 UNIT VIAL TOP ONE
[2016-09-10] MEDS: LEVOTHYROXINE 137 MCG TAB PO SCH (05:53)
[2016-09-10 06:51] LABS: ADD SCAN DIFF NO
[2016-09-10 07:00] LABS: BASOPHILS % 0.3 % (0.0-2.0); EOSINOPHILS # 0.5 10^3/ul (0.0-0.5); HEMATOCRIT 30.8 % (37.0-47.0); HEMOGLOBIN 10.3 g/dl (12.0-16.0); LYMPHOCYTES # 1.4 10^3/ul (0.8-2.9); LYMPHOCYTES % 13.7 % (15.0-51.0); MEAN CORPUSCULAR HEMOGLOBIN 27.9 pg (29.0-33.0); MEAN CORPUSCULAR HGB CONC 33.4 g/dl (32.0-37.0); MEAN CORPUSCULAR VOLUME 83.5 fl (82.0-101.0); MONOCYTE # 0.8 10^3/ul (0.3-0.9); MONOCYTES % 7.8 % (0.0-11.0); NEUTROPHIL # 7.1 10^3/ul (1.6-7.5); NEUTROPHILS % 72.6 % (39.0-77.0); PLATELET COUNT 253 10^3/UL (140-415); RED BLOOD COUNT 3.69 10^6/ul (4.20-5.40); RED CELL DISTRIBUTION WIDTH 13.2 % (11.5-14.5); WHITE BLOOD COUNT 9.8 10^3/ul (4.8-10.8)
[2016-09-10] MEDS ORDERED: PROPOFOL 200 MG INJ ONE (07:00)
[2016-09-10 07:26] LABS: CALCIUM 8.2 mg/dl (8.4-10.2); CREATININE 7.21 mg/dl (0.44-1.00); POTASSIUM 3.9 mmol/L (3.5-5.1)
--- NOTE | 2016-09-10 07:53 | HPN ---
Date/Time of Note Date/Time of Note DATE: 09/10/16 TIME: 07:53 Interval H&P Admission Note Pt. seen H&P reviewed: No system changes ADELFO WILDE MD Sep 10, 2016 07:53
[2016-09-10] MEDS: CALCIUM ACETATE 667 MG CAP NGT SCH ×3 (07:55→16:46)
[2016-09-10] MEDS ORDERED: HEPARIN 1000 UNITS/ML 10 ML INJ CATHETER ONE (08:30)
[2016-09-10] MEDS: ATENOLOL 50 MG TAB GTB SCH (09:00)
[2016-09-10] MEDS: FERROUS SULFATE (EC) 325 MG TAB PO SCH (09:00)
[2016-09-10] MEDS: ALLOPURINOL 100 MG TAB PO SCH (09:00)
[2016-09-10] MEDS: BENAZEPRIL 10 MG TAB PO SCH (09:00)
--- NOTE | 2016-09-10 09:50 | PN ---
Date/Time of Note Date/Time of Note DATE: 09/10/16 TIME: 09:49 Assessment/Plan VTE Prophylaxis VTE Prophylaxis Intervention: ambulation Lines/Catheters IV Catheter Type (from Nrs): Saline Lock Urinary Cath still in place: No Assessment/Plan Assessment/Plan 1. renal: esrd on hd, cont permacath, dialysis arranged t/r/sat (b0 plan fistula today 2. d/c home after fistula Subjective 24 Hr Interval Summary Free Text/Dictation no complaints Exam/Review of Systems Vital Signs Vitals Vital Signs Date Time Temp Pulse Resp B/P Pulse Ox O2 Delivery O2 Flow Rate FiO2 09/10/16 08:18 98.7 55 18 106/54 96 09/09/16 00:00 Room Air Intake and Output 09/09/16 09/09/16 09/10/16 15:00 23:00 07:00 Intake Total 800 ml 800 ml Balance 800 ml 800 ml Exam Constitutional: alert Respiratory: clear to auscultation Cardiovascular: regular rate and rhythm Gastrointestinal: non-tender, soft Results Result Diagram: 09/10/16 0550 09/10/16 0550 Results 24 hrs Laboratory Tests Test 09/10/16 05:50 09/10/16 07:35 White Blood Count 9.8 Red Blood Count 3.69 L Hemoglobin 10.3 L Hematocrit 30.8 L Mean Corpuscular Volume 83.5 Mean Corpuscular Hemoglobin 27.9 L Mean Corpuscular Hemoglobin Concent 33.4 Red Cell Distribution Width 13.2 Platelet Count 253 Mean Platelet Volume 10.0 Neutrophils % 72.6 Lymphocytes % 13.7 L Monocytes % 7.8 Eosinophils % 5.0 Basophils % 0.3 Nucleated Red Blood Cells % 0.0 Neutrophils # 7.1 Lymphocytes # 1.4 Monocytes # 0.8 Eosinophils # 0.5 Basophils # 0.0 Nucleated Red Blood Cells # 0.0 Sodium Level 130 L Potassium Level 3.9 Chloride Level 91 L Carbon Dioxide Level 25 Anion Gap 18 H Blood Urea Nitrogen 51 H Creatinine 7.21 #H Glucose Level 94 Calcium Level 8.2 L Lab Scanned Report REFERENCE LAB Medications Medications Current Medications Ferrous Sulfate (Ferrous Sulfate (Ec)) 325 mg DAILY PO Last administered on t 08:15; Admin Dose 325 MG; Start 09/05/16 at 09:00 Ondansetron HCl (Zofran Inj) 4 mg Q6H PRN IV NAUSEA AND/OR VOMITING Last administered on 09/07/16 12:39; Admin Dose 4 MG; Start 09/04/16 at 17:00 Acetaminophen (Tylenol Tab) 650 mg Q6H PRN PO PAIN LEVEL 1-3 OR FEVER Last administered on 09/06/16 20:26; Admin Dose 650 MG; Start 09/04/16 at 17:00 Morphine Sulfate (morphine) 2 mg Q4H PRN IV PAIN LEVEL 7-10; Start 09/04/16 at 17:00 Docusate Sodium (Colace) 100 mg Q12H PRN PO CONSTIPATION Last administered on 08:15; Admin Dose 100 MG; Start 09/04/16 at 17:00 Magnesium Hydroxide (Milk Of Mag) 30 ml DAILY PRN PO CONSTIPATION; Start at 17:00 Bisacodyl (Dulcolax Supp) 10 mg DAILY PRN IN CONSTIPATION; Start 09/04/16 at 17 :00 Famotidine (Pepcid) 10 mg HS PO Last administered on 09/09/16 20:58; Admin Dose 10 MG; Start 09/04/16 at 21:00 Hydralazine HCl (Apresoline) 10 mg Q6H PRN IV ELEVATED BLOOD PRESSURE Last administered on 09/05/16 04:33; Admin Dose 10 MG; Start 09/04/16 at 17:30 Benzocaine (Orajel Maximum) 1 applic Q4H PRN MM mouth/gum pain; Start 09/04/16 at 23:30 Benazepril HCl (Lotensin) 10 mg DAILY PO Last administered on 09/09/16 08:15; Admin Dose 10 MG; Start 09/05/16 at 09:30 Atenolol (Tenormin) 50 mg BID GTB Last administered on 09/09/16 20:58; Admin Dose 50 MG; Start 09/05/16 at 09:30 Atorvastatin Calcium (Lipitor) 20 mg QHS PO Last administered on 09/09/16 20: 58; Admin Dose 20 MG; Start 09/05/16 at 21:00 Allopurinol (Zyloprim) 100 mg DAILY PO Last administered on 09/09/16 08:16; Admin Dose 100 MG; Start 09/05/16 at 14:00 Lorazepam (Ativan) 0.5 mg Q6H PRN PO ANXIETY; Start 09/05/16 at 18:00 CONNIE DELGADILLO MD Sep 10, 2016 09:50
--- NOTE | 2016-09-10 09:51 | PDOCDIS ---
Discharge Instructions CONDITION Patient Condition: Fair HOME CARE INSTRUCTIONS: Diet Instructions: 2gm Na ACTIVITY: Activity Restrictions: Slowly Increase Activity FOLLOW UP/APPOINTMENTS Follow-up Plan 1. follow up with dialysis as scheduled 2. follow up dr burt 2 weeks CONNIE DELGADILLO MD Sep 10, 2016 09:51
[2016-09-10] MEDS ORDERED: THROMBIN 5000 UNIT VIAL ONE (10:29)
[2016-09-10] MEDS ORDERED: LIDOCAINE 1% (MPF) 30 ML INJ ONE (10:29)
[2016-09-10] MEDS ORDERED: GELATIN SIZE 100 SPONGE ONE (10:29)
[2016-09-10] MEDS ORDERED: HYDROmorphONE (0.2 MG/ML) 10ML SYG IV PRN ×3 (10:30)
[2016-09-10] MEDS ORDERED: EPHEDrine SULFATE 50 MG/5 ML SYG IV PRN (10:30)
[2016-09-10] MEDS ORDERED: morphine (1 MG/ML) 10ML SYRINGE IV PRN ×3 (10:30)
[2016-09-10] MEDS ORDERED: ONDANSETRON 4 MG INJ IV PRN (10:30)
[2016-09-10] MEDS ORDERED: MEPERIDINE 25 MG INJ IV PRN (10:30)
[2016-09-10] MEDS ORDERED: OXYCODONE/ACETAMINOPHEN (5/325) TAB PO PRN ×2 (10:30)
[2016-09-10] MEDS ORDERED: DIPHENHYDRAMINE 50 MG INJ IV PRN (10:30)
[2016-09-10] MEDS ORDERED: MIDAZOLAM 1 MG/ML 2 ML INJ IV PRN (10:30)
[2016-09-10] MEDS ORDERED: LABETALOL HCL 20MG INJ IV PRN (10:30)
[2016-09-10] MEDS ORDERED: hydrALAzine 20 MG INJ IV PRN (10:30)
[2016-09-10] MEDS ORDERED: ATROPINE 1 MG/10 ML SYRINGE IV PRN (10:30)
[2016-09-10] MEDS ORDERED: FENTAnyl 50 MCG/ML VIAL IV PRN ×2 (10:30)
[2016-09-10] MEDS ORDERED: MIDAZOLAM 1 MG/ML 2 ML INJ ONE (10:34)
[2016-09-10] MEDS ORDERED: FENTAnyl 50 MCG/ML VIAL ONE (10:34)
[2016-09-10] MEDS ORDERED: CLINDAMYCIN 900 MG/D5W (PMX) 50 ML IVPB ONE (11:02)
--- NOTE | 2016-09-10 11:12 | OPR ---
Date/Time of Note Date/Time of Note DATE: 09/10/16 TIME: 11:10 Operative Report Free Text/Dictation DATE OF OPERATION: 09/10/2016 SURGEON: Robert Wilde MD PREOPERATIVE DIAGNOSIS: ESRD POSTOPERATIVE DIAGNOSIS: ESRD PROCEDURE: Creation of a left arm brachiocephalic arteriovenous fistula. ANESTHESIA: Regional Block and Local COMPLICATIONS: None. ESTIMATED BLOOD LOSS: Minimal. TRANSFUSIONS: None SPECIMEN: None. INDICATIONS: This is a 55-year-old female with a history of impending end- stage renal artery disease. The risks and benefits of the procedure were discussed with the patient and not limited to , [place], pneumonia, stroke, infection, thrombosis of graft and arteriovenous fistula, nerve injury, limb loss, revisions of AVF, steal and she elected to undergo surgical intervention. DESCRIPTION: The patient was placed in supine position on the operating room table. The arms were placed at 80 degrees. The normal bony prominences were padded. The anesthesia team had placed the appropriate lines and anesthesia was induced. Time out performed and the appropriate site was marked and confirmed. The patient's upper extremity prepped and draped in the usual standard sterile fashion. Preoperative antibiotics were administered prior to the skin incision since the patient already had been on antibiotics. A 6 cm transverse skin incision was then performed below the antecubital fossa. The cephalic vein was identified and dissected for a segment of nearly 5 cm. Dissection was then carried as distally as possible through that incision. Attention was then directed to the brachial artery. The tendinous aponeurosis of the biceps muscle was then incised. Location of the brachial artery was then identified by palpation. The soft tissue over the brachial artery was then incised, and the brachial artery was then confirmed. The patient was given 2500 units of heparin intravenously. The cephalic vein was then ligated at its most distal end. Yasargil clamps were then applied on the brachial artery, and a 6 mm incision in the anterior wall of the brachial artery was then performed. The cephalic vein was then gently curved and allowed to lay over the arteriotomy. The end of the vein was spatulated to match the side of the arteriotomy. The anastomosis was then performed using a running 6-0 Prolene suture. At the completion of the suture line the brachial artery was forward-flushed and then allowed to backbleed. The cephalic vein was also allowed to backbleed. The anastomosis was irrigated with heparinized saline solution. The suture was then tied and the suture line evaluated for hemostasis, which was adequate. There was evidence of excellent thrill in the cephalic vein. There was a strong pulse palpable in the brachial, radial, and ulnar arteries at the wrist. There was no evidence of any kinks. The subcutaneous tissue was then closed with a 3-0 Vicryl running suture and the skin closed with birdie. There was evidence of excellent thrill in the cephalic vein after the wound closure. The patient tolerated the procedure well, was taken to the postanesthesia care unit in stable condition. All instruments, catheters, sponge, and needles were corrected x2. ROBERT WILDE MD Sep 10, 2016 11:11
[2016-09-10] MEDS ORDERED: ONDANSETRON 4 MG INJ ONE (12:03)
[2016-09-10] MEDS ORDERED: DEXAMETHASONE 4 MG/ML 1 ML INJ ONE (12:03)
--- NOTE | 2016-09-10 22:33 | CONS ---
Date/Time of Note Date/Time of Note DATE: 09/10/16 TIME: 22:32 Assessment/Plan Assessment/Plan Chief Complaint/Hosp Course spoke to daughter re pt to consider PD instead of HD as an option She us reading up, hopefully will decide once V Sx arrives to see pt Problems: Consultation Date/Type/Reason Admit Date/Time Sep 04, 2016 at 16:40 Type of Consultation: Renal Exam/Review of Systems Vital Signs Vitals Vital Signs Date Time Temp Pulse Resp B/P Pulse Ox O2 Delivery O2 Flow Rate FiO2 09/10/16 18:47 97.2 79 18 130/84 97 Room Air 09/10/16 13:49 2.0 Intake and Output 09/09/16 09/09/16 09/10/16 15:00 23:00 07:00 Intake Total 800 ml 1100 ml Output Total 20 ml Balance 800 ml 1080 ml Results Result Diagram: 09/10/16 0550 09/10/16 1114 Results 24 hrs Laboratory Tests Test 09/10/16 05:50 09/10/16 07:35 09/10/16 11:14 White Blood Count 9.8 Red Blood Count 3.69 L Hemoglobin 10.3 L Hematocrit 30.8 L Mean Corpuscular Volume 83.5 Mean Corpuscular Hemoglobin 27.9 L Mean Corpuscular Hemoglobin Concent 33.4 Red Cell Distribution Width 13.2 Platelet Count 253 Mean Platelet Volume 10.0 Neutrophils % 72.6 Lymphocytes % 13.7 L Monocytes % 7.8 Eosinophils % 5.0 Basophils % 0.3 Nucleated Red Blood Cells % 0.0 Neutrophils # 7.1 Lymphocytes # 1.4 Monocytes # 0.8 Eosinophils # 0.5 Basophils # 0.0 Nucleated Red Blood Cells # 0.0 Sodium Level 130 L Potassium Level 3.9 4.6 Chloride Level 91 L Carbon Dioxide Level 25 Anion Gap 18 H Blood Urea Nitrogen 51 H Creatinine 7.21 #H Glucose Level 94 Calcium Level 8.2 L Lab Scanned Report REFERENCE LAB JACOBO RUDOLPH MD Sep 10, 2016 22:32
--- NOTE | 2016-09-11 10:30 | RADRPT ---
Vent Rate: 60 bpm RR Interval: 0 msec LA Interval: 156 msec QRS Duration: 82 msec QT Interval: 462 msec QTC Interval: 462 msec P-R-T [place]: 61 - 55 - 59 degrees Normal sinus rhythm Normal ECG Electronically Signed By: Silvestre Watson [id number]
== END 2016-09-10 18:59 | disposition home or self-care (01) | DRG 673 ==
LOC: FTE 13:09 → TEL 16:40
PROVIDERS: ADMIT Internal Medicine; ATTEND Internal Medicine
PROC: 02H633Z Insertion of Infusion Device into Right Atrium, Percutaneous Approach (ICD-10-PCS; 2016-09-06)
PROC: 5A1D60Z (ICD-10-PCS; 2016-09-06)
PROC: 0JH63XZ Insertion of Tunneled Vascular Access Device into Chest Subcutaneous Tissue and Fascia, Percutaneous Approach (ICD-10-PCS; 2016-09-06)
PROC: 03180ZD Bypass Left Brachial Artery to Upper Arm Vein, Open Approach (ICD-10-PCS; principal; 2016-09-10 10:30)
DX: I12.0 Hypertensive chronic kidney disease with stage 5 chronic kidney disease or end stage renal disease (principal); N18.6 End stage renal disease; E87.5 Hyperkalemia; E03.9 Hypothyroidism, unspecified; E78.5 Hyperlipidemia, unspecified; D63.1 Anemia in chronic kidney disease
CPT/HCPCS: 36415; 36430; 71010; 76775; 80048; 80053; 80061; 80069; 81001; 82607; 82728; 82746; 83036; 83540; 83690; 83735; 83970; 84100; 84132; 84155; 84300; 84439; 84443; 84484; 84560; 85025; 85610; 85730; 86038; 86160; 86704; 86706; 86709; 86803; 86850; 86900; 86901; 86920; 87340; 90935; 93005; 93306; 93923; 93970; 96374; 96375; C1769; J0360; J1100; J1644; J1940; J2250; J2405; J3010; P9016; Q9967

== ENCOUNTER 2016-09-24 10:03 | Emergency (ER) | END 2016-09-24 11:49 | disposition home or self-care (01) | DX: T82.49XA Other complication of vascular dialysis catheter, initial encounter (principal); I10 Essential (primary) hypertension; Y82.8 Other medical devices associated with adverse incidents | CPT/HCPCS: 71010; Z7502 ==

== ENCOUNTER 2016-11-04 09:13 | Emergency (ER) | payer OTHER ==
[~2016-11-04] VITALS: Ht 157.5 cm; Wt 70.5 kg
[~2016-11-04 09:13] MED LIST: ATEN50TA GTB; ATOR20TA65 PO; CALC667C PO; FER325 PO; LEVO137T3 PO; LISI20TA11 PO; SIMV20TA PO
[2016-11-04 09:18] VITALS: Ht 157.5 cm; Wt 70.5 kg
--- NOTE | 2016-11-04 11:08 | ERA ---
ER Documentation Chief Complaint Date/Time DATE: 11/04/16 TIME: 11:07 Chief Complaint LEFT CHEST DIALYSIS CATH CHECK HPI The patient is a 55-year-old female, presenting to the ER to check the left chest Permcath dialysis catheter. She has recently been on dialysis since August 2016, Friday and Friday. She had dialysis 2 days ago. She denies fever, chills, neck pain, chest pain, dyspnea, abdominal pain. Past medical history: Chronic kidney disease, dyslipidemia, hypertension, hypothyroidism Past surgical history: Left upper extremity AV fistula ROS All systems reviewed and are negative except as per history of present illness. Medications Home Meds Active Scripts Calcium Acetate* (Calcium Acetate*) 667 Mg Capsule, 2001 MG PO WITH MEALS for 30 Days, #270 CAP Prov:CONNIE DELGADILLO MD 09/09/16 Atorvastatin Calcium (Atorvastatin Calcium) 20 Mg Tablet, 20 MG PO QHS for 30 Days, #30 TAB Prov:CONNIE DELGADILLO MD 09/09/16 Atenolol* (Atenolol*) 50 Mg Tablet, 50 MG GTB BID for 30 Days, #60 TAB Prov:CONNIE DELGADILLO MD 09/09/16 Ferrous Sulfate* (Ferrous Sulfate*) 325 Mg Tabec, 325 MG PO DAILY for 30 Days, # 30 TAB Prov:CONNIE DELGADILLO MD 09/09/16 Reported Medications Lisinopril* (Lisinopril*) 20 Mg Tablet, 20 MG PO DAILY, #30 TAB 09/04/16 Levothyroxine Sodium* (Levothyroxine Sodium*) 137 Mcg Tablet, 137 MCG PO BEFORE BREAKFAST, #30 TAB 09/04/16 Allergies Allergies: Coded Allergies: Penicillins (Verified Allergy, Severe, 09/24/16) PMhx/Soc History of Surgery: Yes ( 1993, tanvi fistula, permacath) Anesthesia Reaction: No Hx Neurological Disorder: No Hx Respiratory Disorders: No Hx Cardiac Disorders: Yes (HTN, high cholesterol) Hx Psychiatric Problems: No Hx Miscellaneous Medical Probl: Yes (DIALYSIS T TH FRI) Hx Alcohol Use: No Hx Substance Use: No Hx Tobacco Use: No Smoking Status: Never smoker Physical Exam Vitals Vital Signs Date Time Temp Pulse Resp B/P Pulse Ox O2 Delivery O2 Flow Rate FiO2 11/04/16 09:18 98.3 61 18 145/67 100 Physical Exam Const: No acute distress. Head: Atraumatic. Eyes: Normal Conjunctiva. ENT: Normal External Ears, Nose and Mouth. Neck: Full range of motion. No meningismus. Resp: Clear to auscultation bilaterally. Cardio: Regular rate and rhythm. Left chest with dialysis catheter that is working properly, no erythema or discharge at the insertion Abd: Soft, non distended, normal bowel sounds, non tender. Skin: No petechiae or rashes. Back: No midline or flank tenderness. Ext: No cyanosis, or edema. Neur: Awake and alert. No focal deficit Psych: Normal Mood and Affect. Results 24 hrs Current Medications Medications (Trade) Dose Ordered Sig/Lou Route PRN Reason Start Time Stop Time Status Last Admin Dose Admin Heparin Sodium (Porcine) (Heparin Flush (1 Unit/ml)) 0.5 unit ONCE ONCE CATHETER 11/04/16 12:00 11/04/16 12:06 DC Heparin Sodium (Porcine) (Heparin Flush (1 Unit/ml)) 0.5 unit ONCE ONCE CATHETER 11/04/16 12:00 11/04/16 12:06 DC Heparin Sodium (Porcine) (Heparin (1000 Units/ml)) 1,500 unit ONCE ONCE CATHETER 11/04/16 12:30 11/04/16 12:30 DC Heparin Sodium (Porcine) (Heparin (1000 Units/ml)) 1,500 unit ONCE ONCE CATHETER 11/04/16 12:30 11/04/16 12:30 DC Heparin Sodium (Porcine) (Heparin (1000 Units/ml)) 2,000 unit ONCE ONCE CATHETER 11/04/16 12:30 11/04/16 12:31 DC 11/04/16 12:27 Heparin Sodium (Porcine) (Heparin (1000 Units/ml)) 2,000 unit ONCE ONCE CATHETER 11/04/16 12:30 11/04/16 12:31 DC Procedures/MDM MEDICAL MAKING DECISION: The patient is a 55-year-old female, presenting with acute malfunction of the permacatheter. The nurse has unsuccessfully flushed the catheter with heparin,. Consultation: I have asked the radiologist Dr. Guevara to evaluate patient in the ER. He is going to replace the catheter Departure Diagnosis: Primary Impression: Dialysis catheter clot or failure Condition: Good Comments She will be discharged after replacement of the dialysis catheter SHERRY BALLARD MD Nov 04, 2016 11:08
[2016-11-04] MEDS ORDERED: HEPARIN 1000 UNITS/ML 10 ML INJ CATHETER ONE ×4 (12:30)
[2016-11-04] MEDS ORDERED: HEPARIN 1000 UNITS/ML 10 ML INJ ONE (16:17)
[2016-11-04] MEDS ORDERED: LIDOCAINE 1% (MDV) 20 ML INJ ONE (16:17)
[2016-11-04] MEDS ORDERED: SOD CHLORIDE 0.9% 500 ML ONE (16:17)
[2016-11-04] MEDS ORDERED: SOD CHLORIDE 0.9% 250 ML ONE ×2 (16:27)
[2016-11-04 17:56] VITALS: BP 151/68; PULSE 58; RESP 16; TEMP 98
--- NOTE | 2016-11-04 17:58 | RADRPT ---
PROCEDURE: Over the wire exchange of right internal jugular vein tunneled dialysis catheter. CLINICAL INDICATION: Renal failure. The existing dialysis catheter is not functioning. TECHNIQUE: Prior to the procedure, informed consent was obtained. Risks including bleeding, infection, and pneu mothorax were explained to the patient. The patient understood and was willing to proceed. A procedu ral pause was performed. The patient's name, date of , and procedure to be performed were verif ied. The central line was inserted with all elements of maximal sterile barrier technique. All of the fol lowing were used: head covering, facial mask, sterile gown, sterile gloves, a large sterile sheet, h and hygiene, and 2% chlorhexidine for cutaneous antisepsis. The right neck and anterior/superior c hest wall was prepped and draped in usual sterile fashion. Following the local injection of Xylocaine, a 1 cm incision was made at the site of the entry of the tunneled dialysis catheter in the right anterior chest wall. The existing right internal jugular v ein dialysis catheter was dissected out using blunt dissection. The catheter was removed with fluor oscopic guidance over a 0.035-inch guide wire. The new 14.5 Georgian 23 cm long [employer] BioFlo DuraMax dialysis catheter was advanced over the guide wire. The guidewire was removed. The tip of the catheter was confirmed in position within the upper right atrium. The 2 ports were each flushed with 2.3 ml of 1:1000 heparin. The incision in the chest wall was clos ed with 4-0 Vicryl suture. The catheter was secured to the skin with 2-0 silk. The site was dresse d. The patient tolerated the procedure well. COMPARISON: None. FINDINGS: Final images demonstrate the tip of the catheter in the upper right atrium. A total of 0.1 minutes of fluoroscopy time was used. 6 images of the chest were obtained with image intensifier. IMPRESSION: 1. Percutaneous replacement of right internal jugular dialysis tunneled dialysis catheter with fluor oscopic guidance. RPTAT: QQ .Jay Guevara MD, MD Date Time Electronically viewed and signed by .Jay Guevara MDMD on 11/04/2016 17:58 .Jose
== END 2016-11-04 17:57 | disposition home or self-care (01) ==
LOC: E/R 09:13
DX: T82.868A Thrombosis due to vascular prosthetic devices, implants and grafts, initial encounter (principal); I12.9 Hypertensive chronic kidney disease with stage 1 through stage 4 chronic kidney disease, or unspecified chronic kidney disease; N18.9 Chronic kidney disease, unspecified; E03.9 Hypothyroidism, unspecified; Y73.2 Prosthetic and other implants, materials and accessory gastroenterology and urology devices associated with adverse incidents; Z99.2 Dependence on renal dialysis
CPT/HCPCS: 36558; 36593; J1644; J7040; J7050; Z7502; Z7610

== ENCOUNTER 2017-01-08 12:25 | Day surgery (SDC) | payer MEDICARE, OTHER ==
[~2017-01-08] VITALS: Ht 154.9 cm; Wt 70.3 kg
[~2017-01-08 12:25] MED LIST changes: -SIMV20TA PO
[2017-01-08 14:29] VITALS: Ht 154.9 cm; Wt 70.3 kg
[2017-01-08] MEDS ORDERED: ATOR40TA68 PO (14:42)
[2017-01-08] MEDS ORDERED: CALC667C PO (14:42)
[2017-01-08] MEDS ORDERED: FER325 PO (14:42)
[2017-01-08] MEDS ORDERED: ATEN50TA PO (14:42)
[2017-01-08 15:39] VITALS: BP 134/61; PULSE 72; RESP 20
[2017-01-08] MEDS ORDERED: PROPOFOL 40 ML ONE (16:00)
--- NOTE | 2017-01-08 16:00 | OPPN ---
Date/Time of Note Date/Time of Note DATE: 01/08/17 TIME: 15:53 Proc Note GI Procedure Date 01/08/17 Indication: screening/surveillance Pre-procedure Diagnosis CRC screening Post-procedure Diagnosis Impression: Normal colonic mucosa Moderate size internal hemorrhoids Plan: Follow up as scheduled] High fiber diet Annual hemoccult stool testing [Review pathology] [Screening colonoscopy in 10 years] . Procedure Performed: Colonoscopy Surgeon ABISAI ESPAÑA MD see signature line Detention Sergeant none Anesthesia Type: MAC Anesthesiologist: JACEK BYERS MD Tourniquet Time none EBL none Transfusion required none Biopsy 1: none Grafts/Implants none Tubes/Drains none Complication(s) none Disposition: home Procedure Description After informed consent, with the patient/relatives understanding the procedure, its indications and potential risks and complications, including but not limited to: Allergic reaction, bleeding, perforation, infection, and after all pertinent questions were answered to the patient's satisfaction, the patient/ relatives signed the witnessed informed consent. Following this, premedication was administered slowly IV push under careful cardiovascular and respiratory monitoring with pulse [employer], automatic blood pressure, and monitoring specialist. Once the sedative effect was achieved, the patient was placed in the left lateral decubitus position, digital rectal examination was performed. The colonoscope was then introduced and advanced under visual control throughout all segments of the colon including: []the rectum, sigmoid, descending colon, splenic flexure, transverse colon, hepatic flexure, ascending colon and finally reaching the cecum which was clearly identified by transillumination, finger indentation and the ileocecal valve. Careful examination of the mucosa of the lower gastrointestinal tract both on insertion as well as withdrawal of the instrument disclosed the following findings: PREPARATION QUALITY: [Adequate], RECTAL EXAM: The anorectal area was visualized examined and digital rectal examination performed with the following findings: No evidence of perirectal disease, no masses. COLONIC MUCOSA: The mucosa of all segments of the colon was carefully examined and showed the following findings: the examined mucosa appears within normal limits. There is no evidence of inflammatory changes, diverticular formation, polyps or other neoplasms, vascular malformation, or any other abnormality. Moderate size internal hemorrhoids The instrument was then withdrawn, the patient tolerated the procedure well and was transferred out of the Endoscopy Suite awake and in good condition to continue recovery under observation. Copies To: CC: ABISAI ESPAÑA MD, MORDO MD Jan 08, 2017 16:00
[2017-01-08 16:27] VITALS: BP 158/65; RESP 14
== END 2017-01-08 18:25 | disposition home or self-care (01) ==
LOC: GIL 12:25
PROVIDERS: ATTEND Internal Medicine Gastroenterology
DX: Z12.11 Encounter for screening for malignant neoplasm of colon (principal); K64.8 Other hemorrhoids; I12.0 Hypertensive chronic kidney disease with stage 5 chronic kidney disease or end stage renal disease; N18.6 End stage renal disease; Z99.2 Dependence on renal dialysis
CPT/HCPCS: 84132; G0121